=== PATIENT | male | born 1935 | race Caucasian/White ===

== ENCOUNTER 2020-05-04 07:34 | Outpatient (CLI) | payer MEDICARE ==
--- NOTE | 2020-05-04 10:35 | Ultrasound Report ---
PROCEDURE: Carotid Doppler Complete INDICATIONS: CHRONIC AFIB, EXPRESSIVE LANGUAGE DISORDER TECHNIQUE: Color and pulse Doppler interrogation was performed of both carotid systems, with image documentation and velocity measurements. COMPARISON: None. FINDINGS: Right side: Brachial blood pressure: mm Hg. Common carotid artery peak systolic velocity: 89 cm/sec. Internal carotid artery peak systolic velocity at the bulb: 137 cm/sec. Internal carotid artery end diastolic velocity at the bulb: 23 cm/sec. External carotid artery peak systolic velocity: 131 cm/sec. ICA/CCA peak systolic ratio: 0.98 . Zayas scale imaging description: Severe calcified plaque in the right bulb. Percent internal carotid artery stenosis: 50-69% stenosis in the right carotid bulb. Vertebral artery: Flow direction is antegrade. Left side: Brachial blood pressure: mm Hg. Common carotid artery peak systolic velocity: 81 cm/sec. Internal carotid artery peak systolic velocity: 73 cm/sec. Internal carotid artery end diastolic velocity: 17 cm/sec. External carotid artery peak systolic velocity: 128 cm/sec. ICA/CCA peak systolic ratio: 0.90 . Zayas scale imaging description: Mild to moderate calcified plaque in the left bulb. Percent internal carotid artery stenosis: No significant stenosis by velocity/ratio criteria. . Vertebral artery: Flow direction is antegrade. IMPRESSION: 1. 50-69% stenosis in the right carotid bulb. 2. No significant stenosis by velocity/ratio criteria on the left. The estimate of stenosis included in the report of the imaging study was calculated using the NASCET method Reviewed by: John Rodriguez on 05/04/2020 10:33 AM [facility] Approved by: John Rodriguez on 05/04/2020 10:33 AM [facility] Station ID: [id number]
== END 2020-05-04 07:35 | disposition home or self-care (01) ==
LOC: DI 07:34
PROVIDERS: ATTEND Physician Assistant
DX: I48.20 Chronic atrial fibrillation, unspecified (principal); F80.1 Expressive language disorder
CPT/HCPCS: 93880

== ENCOUNTER 2020-05-05 07:44 | Outpatient (CLI) | payer MEDICARE ==
[2020-05-05 07:57] LABS: BASOPHILS # (AUTO) 0.1 10^3/uL (0.0-0.1); BASOPHILS % (AUTO) 0.7 %; EOSINOPHILS # (AUTO) 0.4 10^3/uL (0.0-0.7); EOSINOPHILS % (AUTO) 4.2 %; HGB - HEMOGLOBIN 14.6 g/dL (14.0-18.0); LYMPHOCYTES # (AUTO) 1.8 10^3/uL (1.5-3.5); LYMPHOCYTES % (AUTO) 19.7 %; MEAN CORPUSCULAR HEMOGLOBIN 33.9 pg (27.0-31.0); MEAN CORPUSCULAR HGB CONC 33.3 g/dL (32.0-36.0); MEAN CORPUSCULAR VOLUME 101.6 fL (80.0-94.0); MONOCYTES % (AUTO) 11.1 %; NEUTROPHILS # (AUTO) 5.8 10^3/uL (1.5-6.6); NEUTROPHILS % (AUTO) 64.2 %; PLT - PLATELET COUNT 175 10^3/uL (130-450); RED BLOOD COUNT 4.31 10^6/uL (4.70-6.10); RED CELL DISTRIBUTION WIDTH 12.9 % (12.0-15.0)
[2020-05-05 08:04] LABS: INR 2.7 (0.8-1.2)
[2020-05-05 08:36] LABS: ALBUMIN/GLOBULIN RATIO 1.2 (1.0-2.2); ALKALINE PHOSPHATASE 88 IU/L (42-121); ALT ALANINE AMINOTRANSFERASE 24 IU/L (10-60); AST ASPARTATE AMINOTRANSFERASE 31 IU/L (10-42); BILIRUBIN,TOTAL 1.9 mg/dL (0.2-1.0); BUN - BLOOD UREA NITROGEN 25 mg/dL (6-20); CALCIUM 9.2 mg/dL (8.5-10.3); CARBON DIOXIDE - CO2 25 mmol/L (21-32); CHLORIDE 103 mmol/L (101-111); CHOLESTEROL 160 mg/dL; GLUCOSE 95 mg/dL (70-100); HDL CHOLESTEROL 54 mg/dL; LDL CHOLESTEROL,CALCULATED 95 mg/dL; LDL/HDL RATIO 1.8 (<3.6); SODIUM 139 mmol/L (135-145); TOTAL PROTEIN 7.3 g/dL (6.7-8.2); VLDL CHOLESTEROL 11 mg/dL
[2020-05-05 08:49] LABS: THYROID STIMULATING HORMONE 1.21 uIU/mL (0.34-5.60)
[2020-05-05 09:40] LABS: FOLATE > 49.60 ng/mL (5.90 - >24.8)
== END 2020-05-05 07:45 | disposition home or self-care (01) ==
LOC: LAB 07:44
PROVIDERS: ATTEND Physician Assistant
DX: I10 Essential (primary) hypertension (principal); I48.91 Unspecified atrial fibrillation; R26.89 Other abnormalities of gait and mobility; F80.1 Expressive language disorder; Z79.01 Long term (current) use of anticoagulants
CPT/HCPCS: 36415; 80053; 80061; 82607; 82746; 83721; 84443; 85025; 85610

== ENCOUNTER 2020-07-03 08:00 | Outpatient (CLI) | payer MEDICARE ==
[2020-07-03 16:02] LABS: INR 2.7 (0.8-1.2); PT - PROTHROMBIN TIME 28.1 secs (9.9-12.6)
== END 2020-07-03 23:59 | disposition home or self-care (01) ==
LOC: LAB 08:00
PROVIDERS: ATTEND Family Medicine
DX: Z79.01 Long term (current) use of anticoagulants (principal)
CPT/HCPCS: 36415; 85610

== ENCOUNTER 2020-07-18 07:52 | Outpatient (CLI) | payer MEDICARE | END 2020-07-18 07:53 | disposition home or self-care (01) | LOC: LAB 07:52 | PROVIDERS: ATTEND Family Medicine | DX: Z79.01 Long term (current) use of anticoagulants (principal) | CPT/HCPCS: 85610 ==

== ENCOUNTER 2020-08-16 14:47 | Outpatient (CLI) | payer MEDICARE | END 2020-08-16 14:48 | disposition home or self-care (01) | LOC: LAB 14:47 | PROVIDERS: ATTEND Family Medicine | DX: Z79.01 Long term (current) use of anticoagulants (principal) | CPT/HCPCS: 85610 ==

== ENCOUNTER 2020-08-24 10:34 | Outpatient (CLI) | payer MEDICARE | END 2020-08-24 10:35 | disposition home or self-care (01) | LOC: LAB 10:34 | PROVIDERS: ATTEND Family Medicine | DX: Z79.01 Long term (current) use of anticoagulants (principal) | CPT/HCPCS: 85610 ==

== ENCOUNTER 2020-09-05 14:51 | Outpatient (CLI) | payer MEDICARE | END 2020-09-05 14:52 | disposition home or self-care (01) | LOC: LAB 14:51 | PROVIDERS: ATTEND Family Medicine | DX: Z79.01 Long term (current) use of anticoagulants (principal) | CPT/HCPCS: 85610 ==

== ENCOUNTER 2020-09-20 17:36 | Outpatient (CLI) | payer MEDICARE | END 2020-09-20 17:37 | disposition home or self-care (01) | LOC: LAB 17:36 | PROVIDERS: ATTEND Family Medicine | DX: Z79.01 Long term (current) use of anticoagulants (principal) | CPT/HCPCS: 36416; 85610 ==

== ENCOUNTER 2020-09-28 08:14 | Outpatient (CLI) | payer MEDICARE | END 2020-09-28 08:15 | disposition home or self-care (01) | LOC: LAB 08:14 | PROVIDERS: ATTEND Family Medicine | DX: Z79.01 Long term (current) use of anticoagulants (principal) | CPT/HCPCS: 36416; 85610 ==

== ENCOUNTER 2020-10-12 08:04 | Outpatient (CLI) | payer MEDICARE | END 2020-10-12 08:05 | disposition home or self-care (01) | LOC: LAB 08:04 | PROVIDERS: ATTEND Family Medicine | DX: Z79.01 Long term (current) use of anticoagulants (principal) | CPT/HCPCS: 36416; 85610 ==

== ENCOUNTER 2020-11-13 10:22 | Outpatient (CLI) | payer MEDICARE | END 2020-11-13 10:23 | disposition home or self-care (01) | LOC: LAB 10:22 | PROVIDERS: ATTEND Family Medicine | DX: Z79.01 Long term (current) use of anticoagulants (principal) | CPT/HCPCS: 36416; 85610 ==

== ENCOUNTER 2020-12-04 11:57 | Outpatient (CLI) | payer MEDICARE | END 2020-12-04 11:58 | disposition home or self-care (01) | LOC: LAB 11:57 | PROVIDERS: ATTEND Family Medicine | DX: Z79.01 Long term (current) use of anticoagulants (principal) | CPT/HCPCS: 36416; 85610 ==

== ENCOUNTER 2020-12-19 00:17 | Outpatient (CLI) | payer MEDICARE | END 2020-12-19 00:18 | disposition critical access hospital (66) | LOC: EMS 00:17 | DX: Z04.3 Encounter for examination and observation following other accident (principal); R53.1 Weakness | CPT/HCPCS: A0425; A0429 ==

== ENCOUNTER 2020-12-19 00:23 | Emergency (ER) | payer MEDICARE ==
--- NOTE | 2020-12-19 00:37 | ED Physician Documentation ---
PD HPI Fall - Stated complaint Stated Complaint: GLF - Chief complaint Chief Complaint: Trauma Hd/Nk - History of Present Illness Mechanism of injury: Lost balance Fall distance: Standing position Where injury occurred: Home (he says he was walking to bathroom with his walker and lost balance. Fell back onto buttocks. Pain in buttocks. Not aware of hitting head. No headache. Was unable to get up himself. Did call his daughter, who lives next door, who called EMS. On Coumadin. Brought to ER for evaluation. Otherwise okay.) Timing - onset: How many hours ago (few), Today Injury(ies) location: Back (buttocks/gluteal area.). No: Head, Neck, Chest, Abdomen Associated symptoms: No: LOC, AMS, Weakness, Paresthesias Contributing factors: Anticoagulated. No: Intoxicated Similar symptoms before: Has not had sx before Review of Systems Constitutional: denies: Fever, Chills Nose: denies: Rhinorrhea / runny nose, Congestion Throat: denies: Sore throat Cardiac: denies: Chest pain / pressure Respiratory: denies: Dyspnea, Cough GI: denies: Nausea, Vomiting, Diarrhea, Bloody / black stool Neurologic: denies: Focal weakness, Numbness, Near syncope, Headache, LOC PD PAST MEDICAL HISTORY - Past Medical History Cardiovascular: Atrial fibrillation Respiratory: None Neuro: None, Dementia Endocrine/Autoimmune: None - Present Medications Home Medications: Ambulatory Orders Medication Instructions Recorded Confirmed Metoprolol Tartrate [Lopressor] 50 mg PO DAILY 12/19/20 12/19/20 Tamsulosin [Flomax] 0.4 mg PO DAILY 12/19/20 12/19/20 Warfarin [Coumadin] 5 mg PO DAILY 12/19/20 12/19/20 - Allergies Allergies/Adverse Reactions: Allergies Allergy/AdvReac Type Severity Reaction Status Date / Time morphine Allergy Unknown Verified 12/19/20 00:52 - Living Situation Living Situation: reports: Alone. denies: With family (but daughter lives in house next door and checks on him often. ) Living Arrangement: reports: At home PD ED PE NORMAL - Vitals Vital signs reviewed: Yes - General General: Alert and oriented X 3, No acute distress, Well developed/nourished - HEENT HEENT: Atraumatic, Moist mucous membranes, Pharynx benign - Neck Neck: Supple, no meningeal sign, No bony TTP, No adenopathy - Cardiac Cardiac: No: RRR (seems fairly regular and no murmur. ) - Respiratory Respiratory: Clear bilaterally, Other (no chestwall tenderness. ) - Abdomen Abdomen: Soft, Non tender - Back Back: No CVA TTP, No spinal TTP (not tender in midline, but does have some tenderness in ischial rami area bilaterally without deformity. Hip joints themselves not tender. ) - Derm Derm: Normal color, Warm and dry - Extremities Extremities: No tenderness to palpate, Normal ROM s pain - Neuro Neuro: Alert and oriented X 3, No motor deficit, Normal speech, Other (ambulatory with his walker. Slow going but independent. ) - Psych Psych: Normal mood, Normal affect Results - Vitals Vitals: Vital Signs - 24 hr 12/19/20 12/19/20 12/19/20 00:25 00:32 01:02 Temperature 97.3 C H 36.3 C L Heart Rate 97 93 89 Respiratory 24 16 14 Rate Blood Pressure 125/75 125/75 131/81 H O2 Saturation 95 96 99 12/19/20 12/19/20 12/19/20 01:24 01:49 02:30 Temperature Heart Rate 97 92 92 Respiratory 18 17 17 Rate Blood Pressure 138/81 H 113/87 H 113/72 O2 Saturation 95 98 95 12/19/20 12/19/20 03:00 03:45 Temperature 37.1 C 37.1 C Heart Rate 88 88 Respiratory 21 21 Rate Blood Pressure 112/72 112/72 O2 Saturation 98 98 Oxygen O2 Source Room air - Labs Labs: Laboratory Tests 12/19/20 12/19/20 12/19/20 00:30 00:30 00:30 WBC 8.8 RBC 4.05 L Hgb 13.6 L Hct 40.7 L MCV 100.5 H MCH 33.6 H MCHC 33.4 RDW 13.6 Plt Count 183 MPV 9.2 Neut # (Auto) 6.5 Lymph # (Auto) 1.2 L [place] # (Auto) 0.8 Eos # (Auto) 0.2 Baso # (Auto) 0.1 Absolute Nucleated RBC 0.00 Nucleated RBC % 0.0 PT 34.8 H INR 3.4 H Sodium 140 Potassium 4.1 Chloride 104 Carbon Dioxide 25 Anion Gap 11.0 BUN 36 H Creatinine 1.8 H Estimated GFR (MDRD) 36 L Glucose 103 H Calcium 9.4 Total Bilirubin 1.4 H AST 34 ALT 23 Alkaline Phosphatase 97 Total Protein 7.0 Albumin 3.9 Globulin 3.1 Albumin/Globulin Ratio 1.3 Lipase 35 - Rads (name of study) head CT Radiology: Prelim report reviewed (no ICH nor acute injury), See rad report pelvic CT Radiology: Prelim report reviewed (no acute fracture. possible old coccygeal fracture noted. ), See rad report PD MEDICAL DECISION MAKING - ED course Complexity details: reviewed results, considered differential, d/w patient, d/w family (daughter came to ER while he was at imaging and was with him, states LOC and alertness/memory at baseline. ) Departure - Departure Disposition: 01 Home, Self Care Clinical Impression: Anticoagulant long-term use Fall from slip, trip, or stumble Qualifiers: Encounter type: initial encounter Qualified Code(s): W01.0XXA - Fall on same level from slipping, tripping and stumbling without subsequent striking against object, initial encounter Contusion, buttock Qualifiers: Encounter type: initial encounter Qualified Code(s): S30.0XXA - Contusion of lower back and pelvis, initial encounter Condition: Stable Record reviewed to determine appropriate education?: Yes Comments: You can use Tylenol every 4 hours if needed for pains in your buttocks from the fall. No signs of fractures in the pelvis. No signs of bleeding in the head based on your CT scans. Your Coumadin level is slightly elevated at 3.4. Hold today's dose and then resume normal dosing after that. Follow-up with your primary care as needed. Discharge Date/Time: 12/19/20 03:48
[2020-12-19 00:38] LABS: BASOPHILS # (AUTO) 0.1 10^3/uL (0.0-0.1); BASOPHILS % (AUTO) 0.6 %; EOSINOPHILS # (AUTO) 0.2 10^3/uL (0.0-0.7); EOSINOPHILS % (AUTO) 2.2 %; HCT - HEMATOCRIT 40.7 % (42.0-52.0); HGB - HEMOGLOBIN 13.6 g/dL (14.0-18.0); LYMPHOCYTES # (AUTO) 1.2 10^3/uL (1.5-3.5); LYMPHOCYTES % (AUTO) 13.7 %; MEAN CORPUSCULAR HEMOGLOBIN 33.6 pg (27.0-31.0); MEAN CORPUSCULAR HGB CONC 33.4 g/dL (32.0-36.0); MEAN CORPUSCULAR VOLUME 100.5 fL (80.0-94.0); MEAN PLATELET VOLUME 9.2 fL (7.4-11.4); MONOCYTES # (AUTO) 0.8 10^3/uL (0.0-1.0); MONOCYTES % (AUTO) 8.7 %; NEUTROPHILS # (AUTO) 6.5 10^3/uL (1.5-6.6); NEUTROPHILS % (AUTO) 74.5 %; PLT - PLATELET COUNT 183 10^3/uL (130-450); RED BLOOD COUNT 4.05 10^6/uL (4.70-6.10); RED CELL DISTRIBUTION WIDTH 13.6 % (12.0-15.0); WHITE BLOOD COUNT 8.8 x10^3/uL (4.8-10.8)
[2020-12-19 00:40] LABS: INR 3.4 (0.8-1.2); PT - PROTHROMBIN TIME 34.8 secs (9.9-12.6)
[2020-12-19 00:52] LABS: ALBUMIN 3.9 g/dL (3.2-5.5); ALBUMIN/GLOBULIN RATIO 1.3 (1.0-2.2); BILIRUBIN,TOTAL 1.4 mg/dL (0.2-1.0); CREATININE 1.8 mg/dL (0.6-1.2)
[2020-12-19 01:00] LABS: CALCIUM 9.4 mg/dL (8.5-10.3); POTASSIUM 4.1 mmol/L (3.5-5.0)
[2020-12-19] MEDS ORDERED: ACETAMINOPHEN 325 MG TABLET PO STA (01:26)
[2020-12-19 03:05] VITALS: BP 112/72
--- NOTE | 2020-12-19 07:19 | CT Report ---
PROCEDURE: HEAD WO INDICATIONS: fall, on coumadin TECHNIQUE: Noncontrast 4.5 mm thick angled axial sections acquired from the foramen magnum to the vertex. For r adiation dose reduction, the following was used: automated exposure control, adjustment of mA and/or kV according to patient size. COMPARISON: None FINDINGS: Image quality: Excellent. CSF spaces: Basal cisterns are patent. No extra-axial fluid collections. The ventricles are symmet marci in size and shape. Brain: No intracranial bleeds or masses. There is cerebral volume loss for age, with resultant vent ricular and sulcal prominence. There are periventricular and deep white matter chronic small vessel ischemic changes. There is intracranial internal carotid artery atherosclerosis. Skull and face: Calvarium and visualized facial bones appear intact, without suspicious lesions. Sinuses: Visualized sinuses and mastoids are clear. IMPRESSION: No acute intracranial disease process. Reviewed by: Felisa Henderson MD, PhD on 12/19/2020 7:18 AM PDT Approved by: Felisa Henderson MD, PhD on 12/19/2020 7:18 AM PDT Station ID: [id number]
--- NOTE | 2020-12-19 08:55 | CT Report ---
PROCEDURE: PELVIS WO INDICATIONS: fall onto buttocks/ pain sacral/ramus areas TECHNIQUE: Noncontrast 3 mm axial sections acquired through the bony pelvis, with coronal and sagittal reformatt ing. For radiation dose reduction, the following was used: automated exposure control, adjustment of mA and/or kV according to patient size. COMPARISON: None. FINDINGS: Image quality: Excellent. Bones: Pelvic ring is intact. No acute pelvic fracture or dislocation is seen. Bilateral sacroiliac joints, hip joint and symphysis pubis osteoarthritic changes are seen. No evidence of avascular necro sis of femoral head. No bony erosion or ankylosis is seen in bilateral sacroiliac joints. Acute angul ation involving mid coccyx is seen likely represent old fracture. No definite acute coccygeal fractur e. Degenerative disc disease in visualized lower lumbar spine is seen. Soft tissues: There is no pelvic free fluid of free air. Dense atherosclerotic calcifications are no michelet in abdominal aorta and bilateral iliac vessels. Bladder wall thickness is normal. Sigmoid diverti culosis is seen, no wall thickening or pericolonic fat stranding is seen. Enlarged prostate gland wit h mild mass effect on floor of urinary bladder is noted. No pelvic lymphadenopathy. No gross muscle o r soft tissue abnormality is seen in pelvis and bilateral hip. IMPRESSION: 1. No acute pelvic fracture or dislocation. Likely old mid coccygeal fracture as above. 2. Osteoarthritis throughout the bony pelvis no evidence of avascular necrosis of femoral head. Degen erative disc disease in visualized lower lumbar spine. 3. No gross pelvic soft tissue abnormality. Incidental findings are described as above. No discrepancies from preliminary reading. Reviewed by: Arias Stark MD on 12/19/2020 8:53 AM PDT Approved by: Arias Stark MD on 12/19/2020 8:53 AM PDT Station ID: [id number]
== END 2020-12-19 03:48 | disposition home or self-care (01) ==
LOC: EDUNIT# → EDBD → ED 00:23 → SUPCPDRO 00:23 → ED 03:48
DX: S30.0XXA Contusion of lower back and pelvis, initial encounter (principal); W01.0XXA Fall on same level from slipping, tripping and stumbling without subsequent striking against object, initial encounter; Y93.01 Activity, walking, marching and hiking; Y92.009 Unspecified place in unspecified non-institutional (private) residence as the place of occurrence of the external cause; I48.91 Unspecified atrial fibrillation; Z79.01 Long term (current) use of anticoagulants; M51.36 Other intervertebral disc degeneration, lumbar region
CPT/HCPCS: 36415; 70450; 72192; 80053; 83690; 85025; 85610; 99284; A9270

== ENCOUNTER 2020-12-26 15:40 | Outpatient (CLI) | payer MEDICARE | END 2020-12-26 15:41 | disposition home or self-care (01) | LOC: LAB 15:40 | PROVIDERS: ATTEND Family Medicine | DX: Z79.01 Long term (current) use of anticoagulants (principal) | CPT/HCPCS: 85610 ==

== ENCOUNTER 2021-01-16 19:13 | Outpatient (CLI) | payer MEDICARE | END 2021-01-16 19:14 | disposition EMS.NT | LOC: EMS 19:13 | DX: R42 Dizziness and giddiness (principal) ==

== ENCOUNTER 2021-01-30 10:13 | Outpatient (CLI) | payer MEDICARE | END 2021-01-30 10:14 | disposition home or self-care (01) | LOC: LAB 10:13 | PROVIDERS: ATTEND Family Medicine | DX: Z79.01 Long term (current) use of anticoagulants (principal) | CPT/HCPCS: 36416; 85610 ==

== ENCOUNTER 2021-02-06 10:16 | Outpatient (CLI) | payer MEDICARE | END 2021-02-06 10:17 | disposition critical access hospital (66) | LOC: EMS 10:16 | DX: R41.82 Altered mental status, unspecified (principal) | CPT/HCPCS: A0425; A0429 ==

== ENCOUNTER 2021-02-06 10:22 | Emergency (ER) | payer MEDICARE ==
--- NOTE | 2021-02-06 10:29 | ED Physician Documentation ---
PD HPI Fall - Stated complaint Stated Complaint: GLF - History obtained from History obtained from: EMS - History of Present Illness Mechanism of injury: Unknown Fall distance: Unknown Where injury occurred: Home, A house / apartment Timing - onset: Unknown Injury(ies) location: Other (None noted) Pain level max: 0 Pain level now: 0 - Additional information Additional information: History provided per EMS because of patient's dementia. He lives alone and is cared for by his daughter who believes he has some progressive dementia type symptoms. She came in last night got him his meal and left him for the evening. She found him this morning on the floor incontinent of urine but awake and more confused than normal. His dishes were in the sink and the believe he fell in the kitchen based on the fact that the table was moved slightly. Patient is unable to provide any history because he cannot even tell me where he is or who he is or what date it is. Daughter feels like this confusion is worse than his normal baseline. EMS reports a blood sugar of 95.EMS was unable to identify any specific injuries. Review of Systems Unable to obtain: Confused (Patient not oriented) Skin: reports: Other (Reports bruises just from bumping in to things) Musculoskeletal: reports: Neck pain (On occasion, none now.), Other (Denies any pain) PD PAST MEDICAL HISTORY - Present Medications Home Medications: Ambulatory Orders Medication Instructions Recorded Confirmed Metoprolol Tartrate [Lopressor] 50 mg PO DAILY 12/19/20 12/19/20 Tamsulosin [Flomax] 0.4 mg PO DAILY 12/19/20 12/19/20 Warfarin [Coumadin] 5 mg PO DAILY 12/19/20 12/19/20 - Allergies Allergies/Adverse Reactions: Allergies Allergy/AdvReac Type Severity Reaction Status Date / Time morphine Allergy Unknown Verified 12/19/20 00:52 PD ED PE NORMAL - Vitals Vital signs reviewed: Yes - General General: No acute distress, Other (Thin). No: Alert and oriented X 3 - HEENT HEENT: Atraumatic, PERRL, EOMI - Neck Neck: Other (Neck is stiff but denies pain) - Cardiac Cardiac: RRR, No murmur, Strong equal pulses - Respiratory Respiratory: No respiratory distress, Clear bilaterally - Abdomen Abdomen: Normal bowel sounds, Soft, Non tender, Non distended - Extremities Extremities: Other (Bruising to left elbow. 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, No motor deficit, No sensory deficit, Normal speech - Psych Psych: Normal mood Results - Vitals Vitals: Vital Signs - 24 hr 02/06/21 02/06/21 02/06/21 10:40 11:18 13:00 Temperature 36.6 C Heart Rate 105 H 102 H 98 Respiratory 18 20 20 Rate Blood Pressure 122/72 116/72 140/68 H O2 Saturation 99 98 100 02/06/21 02/06/21 02/06/21 14:16 15:00 16:05 Temperature Heart Rate 95 88 106 H Respiratory 16 17 24 Rate Blood Pressure 143/79 H 126/71 132/81 H O2 Saturation 100 100 98 02/06/21 02/06/21 16:40 17:00 Temperature Heart Rate 98 94 Respiratory 11 L 23 Rate Blood Pressure 150/91 H 148/88 H O2 Saturation 99 99 Oxygen O2 Source Room air - EKG (time done) 1030 Rate: Tachy Rhythm: Atrial fibrillation Ischemia: Non specific changes - Labs Labs: Laboratory Tests 02/06/21 02/06/21 02/06/21 10:39 10:39 10:39 WBC 9.6 RBC 3.92 L Hgb 13.1 L Hct 40.0 L MCV 102.0 H MCH 33.4 H MCHC 32.8 RDW 13.6 Plt Count 167 MPV 9.1 Neut # (Auto) 7.6 H Lymph # (Auto) 0.9 L [place] # (Auto) 0.9 Eos # (Auto) 0.0 Baso # (Auto) 0.0 Absolute Nucleated RBC 0.00 Nucleated RBC % 0.0 PT 49.1 H INR 4.4 H Sodium 141 Potassium 3.8 Chloride 108 Carbon Dioxide 21 Anion Gap 12.0 BUN 42 H Creatinine 1.1 Estimated GFR (MDRD) 63 L Glucose 117 H Calcium 9.4 CK-MB (CK-2) Urine Color Urine Clarity Urine pH Ur Specific [place] Urine Protein Urine Glucose (UA) Urine Ketones Urine Occult Blood Urine Nitrite Urine Bilirubin Urine Urobilinogen Ur Leukocyte Esterase Urine RBC Urine WBC Ur Squamous Epith Cells Urine Bacteria Ur Microscopic Review Urine Culture Comments 02/06/21 02/06/21 10:39 13:14 WBC RBC Hgb Hct MCV MCH MCHC RDW Plt Count MPV Neut # (Auto) Lymph # (Auto) [place] # (Auto) Eos # (Auto) Baso # (Auto) Absolute Nucleated RBC Nucleated RBC % PT INR Sodium Potassium Chloride Carbon Dioxide Anion Gap BUN Creatinine Estimated GFR (MDRD) Glucose Calcium CK-MB (CK-2) 19.7 H Urine Color YELLOW Urine Clarity CLEAR Urine pH 5.5 Ur Specific [place] 1.025 Urine Protein TRACE Urine Glucose (UA) NEGATIVE Urine Ketones TRACE Urine Occult Blood MODERATE H Urine Nitrite NEGATIVE Urine Bilirubin NEGATIVE Urine Urobilinogen 0.2 (NORMAL) Ur Leukocyte Esterase NEGATIVE Urine RBC 0-5 Urine WBC 0-3 Ur Squamous Epith Cells FEW Squamous Urine Bacteria Few Ur Microscopic Review INDICATED Urine Culture Comments NOT INDICATED PD MEDICAL DECISION MAKING - ED course ED course: CT head neg; Hgb is normal; no UTI. Daughter wants to take the patient home and care for him there rather than consider placement at this time. Daughter assures me that someone can stay with him around the clock until they get him settled at her house. He only lives one mobile home away from her currently. Departure - Departure Disposition: 01 Home, Self Care Clinical Impression: Fall, Contusion of elbow, left Condition: Good Instructions: Falls Risks Prevent, ED Contusion Elbow Ch Follow-Up: [facility] [Provider Group] Comments: Patient should not be left alone due to his risk of falls. Follow-up with his primary care provider as needed.
[2021-02-06 10:46] LABS: BASOPHILS % (AUTO) 0.4 %; EOSINOPHILS % (AUTO) 0.2 %; HGB - HEMOGLOBIN 13.1 g/dL (14.0-18.0); LYMPHOCYTES # (AUTO) 0.9 10^3/uL (1.5-3.5); LYMPHOCYTES % (AUTO) 9.7 %; MEAN CORPUSCULAR HEMOGLOBIN 33.4 pg (27.0-31.0); MEAN CORPUSCULAR HGB CONC 32.8 g/dL (32.0-36.0); MEAN PLATELET VOLUME 9.1 fL (7.4-11.4); MONOCYTES # (AUTO) 0.9 10^3/uL (0.0-1.0); MONOCYTES % (AUTO) 9.4 %; NEUTROPHILS # (AUTO) 7.6 10^3/uL (1.5-6.6); NEUTROPHILS % (AUTO) 79.9 %; PLT - PLATELET COUNT 167 10^3/uL (130-450); RED BLOOD COUNT 3.92 10^6/uL (4.70-6.10); RED CELL DISTRIBUTION WIDTH 13.6 % (12.0-15.0); WHITE BLOOD COUNT 9.6 x10^3/uL (4.8-10.8)
[2021-02-06 10:56] LABS: CALCIUM 9.4 mg/dL (8.5-10.3); CREATININE 1.1 mg/dL (0.6-1.2); POTASSIUM 3.8 mmol/L (3.5-5.0)
[2021-02-06 11:03] LABS: INR 4.4 (0.8-1.2); PT - PROTHROMBIN TIME 49.1 secs (9.9-12.6)
--- NOTE | 2021-02-06 11:08 | CT Report ---
PROCEDURE: HEAD WO INDICATIONS: Fall on Warfarin TECHNIQUE: Noncontrast 4.5 mm thick angled axial sections acquired from the foramen magnum to the vertex. For r adiation dose reduction, the following was used: automated exposure control, adjustment of mA and/or kV according to patient size. COMPARISON: CT 12/19/2020. FINDINGS: Image quality: Excellent. The ventricular system and cortical sulci demonstrate atrophy, consistent for patient's stated age. There are areas of hypodensity in the periventricular and subcortical white matter. There is no acut e intra or extra-axial fluid collection. No acute hemorrhage, mass lesion or midline shift. Brainst em is unremarkable. Globes are symmetrical. Sinuses are aerated. Osseous structures are intact. IMPRESSION: 1. No acute intracranial process. 2. Moderate atrophy and chronic microvascular ischemic changes. Reviewed by: Sheila Scott MD on 02/06/2021 11:07 AM PDT Approved by: Sheila Scott MD on 02/06/2021 11:07 AM PDT Station ID: [id number]
[2021-02-06] MEDS ORDERED: LACTATED RINGERS 1,000 ML IV STA (12:50)
[2021-02-06 13:59] LABS: BILIRUBIN,URINE NEGATIVE (NEGATIVE); GLUCOSE, URINE (UA) NEGATIVE (NEGATIVE); KETONES,URINE (UA) TRACE mg/dL (NEGATIVE); LEUKOCYTE ESTERASE, URINE NEGATIVE (NEGATIVE); NITRITE,URINE NEGATIVE (NEGATIVE); OCCULT BLOOD,URINE MODERATE (NEGATIVE); PH,URINE 5.5 PH (5.0-7.5); PROTEIN,URINE TRACE mg/dL (NEGATIVE); UROBILINOGEN,URINE 0.2 (NORMAL) E.U./dL (NORMAL)
[2021-02-06 14:00] LABS: CLARITY,URINE CLEAR (CLEAR)
[2021-02-06 14:26] LABS: BACTERIA,URINE Few /HPF (None Seen); RBC,URINE 0-5 /HPF (0-5); SQUAMOUS EPITHELIAL CELL,UR FEW Squamous (<= Few); WBC,URINE 0-3 /HPF (0-3)
[2021-02-06 17:05] VITALS: BP 148/88
== END 2021-02-06 18:15 | disposition home or self-care (01) ==
LOC: EDUNIT# → ED 10:22
DX: S50.02XA Contusion of left elbow, initial encounter (principal); W19.XXXA Unspecified fall, initial encounter; Y92.009 Unspecified place in unspecified non-institutional (private) residence as the place of occurrence of the external cause; I48.91 Unspecified atrial fibrillation; Z79.01 Long term (current) use of anticoagulants
CPT/HCPCS: 36415; 70450; 80048; 81001; 82553; 85025; 85610; 93005; 96360; 96361; 99283; 99284; J7120; 81003; 87086

== ENCOUNTER 2021-02-08 09:51 | Outpatient (CLI) | payer MEDICARE | END 2021-02-08 09:52 | disposition critical access hospital (66) | LOC: EMS 09:51 | DX: R41.82 Altered mental status, unspecified (principal) | CPT/HCPCS: A0425; A0429 ==

== ENCOUNTER 2021-02-08 09:58 | Emergency (ER) | payer MEDICARE ==
[2021-02-08] MEDS ORDERED: SODIUM CHLORIDE 0.9% 1,000 ML IV ONE (10:18)
--- NOTE | 2021-02-08 10:19 | ED Physician Documentation ---
PD HPI ALTERED MENTAL STATUS - Stated complaint Stated Complaint: AMS - Chief complaint Chief Complaint: Neuro - History obtained from History obtained from: Patient, Other (Nursing per EMS) - History of Present Illness Timing - onset: Today Timing - details: Abrupt onset Quality / character: Less responsive, Agitated Contributing factors: Anticoagulated Recently seen: Emergency Dept - Additional information Additional information: This is an 85-year-old man whom I actually took care of in the emergency department 2 days ago. He had a history of dementia and had been found down at home unwitnessed fall. At that time he was very pleasant and there was no sign of closed head injury. He had a history of dementia and his daughter who is his primary caregiver felt that he was slightly off from his baseline dementia and things have been getting progressively worse but not to the point that they wanted to seek placement. They were going to move him out of his own mobile home and into living with her. Per EMS report to nursing staff patient this morning was sitting at the table and just kind of staring off in fact report was the daughter thought that he might actually have already . He cannot provide me any information other than the fact that he was very agitated about the fact that all these people showed up and started hooking him up to equipment and brought him here. He does not want to be here. Review of Systems Unable to obtain: Dementia PD PAST MEDICAL HISTORY - Past Medical History Cardiovascular: Atrial fibrillation Respiratory: None Neuro: None, Dementia Endocrine/Autoimmune: None GI: Chronic constipation : Benign prostate hypertrophy, Retention HEENT: Chronic hearing loss Psych: Depression Musculoskeletal: Osteoarthritis Derm: None - Past Surgical History Past Surgical History: Yes General: Cholecystectomy Ortho: Knee replacement - Present Medications Home Medications: Ambulatory Orders Medication Instructions Recorded Confirmed Metoprolol Tartrate [Lopressor] 50 mg PO DAILY 12/19/20 12/19/20 Tamsulosin [Flomax] 0.4 mg PO DAILY 12/19/20 12/19/20 Warfarin [Coumadin] 5 mg PO DAILY 12/19/20 12/19/20 - Allergies Allergies/Adverse Reactions: Allergies Allergy/AdvReac Type Severity Reaction Status Date / Time morphine Allergy Unknown Verified 12/19/20 00:52 - Social History Does the pt smoke?: No Smoking Status: Former smoker Does the pt drink ETOH?: No Does the pt have substance abuse?: No - Immunizations Immunizations are current?: Yes - POLST Patient has POLST: Yes PD ED PE NORMAL - Vitals Vital signs reviewed: Yes - General General: Well developed/nourished, Other (Patient is agitated and slightly confrontational about being asked any questions. He does not know his name, where he is, date or any circumstances of what is going on.) - HEENT HEENT: Atraumatic, PERRL, EOMI - Neck Neck: No JVD - Cardiac Cardiac: RRR, No murmur - Respiratory Respiratory: No respiratory distress, Clear bilaterally - Abdomen Abdomen: Normal bowel sounds, Soft - Derm Derm: Normal color, Other (scattered bruising) - Extremities Extremities: No edema - Neuro Neuro: Other (Moving all extrem equally; speech is not slurred) - Psych Psych: Other (Irritated) Results - Vitals Vitals: Vital Signs - 24 hr 02/08/21 02/08/21 09:58 11:57 Temperature 36.4 C L Heart Rate 110 H 90 Respiratory 16 16 Rate Blood Pressure 134/80 H 147/106 H O2 Saturation 95 Oxygen O2 Source Room air - EKG (time done) 1045 Rate: Rate (enter#) (102) Rhythm: Atrial fibrillation Ischemia: Non specific changes Other comments: Other comments (Artifact present; Some p-waves noted) - Labs Labs: Laboratory Tests 02/08/21 02/08/21 02/08/21 10:19 10:19 10:19 WBC 7.2 RBC 3.96 L Hgb 13.4 L Hct 40.0 L MCV 101.0 H MCH 33.8 H MCHC 33.5 RDW 13.3 Plt Count 156 MPV 9.1 Neut # (Auto) 4.6 Lymph # (Auto) 1.7 [place] # (Auto) 0.7 Eos # (Auto) 0.2 Baso # (Auto) 0.1 Absolute Nucleated RBC 0.00 Nucleated RBC % 0.0 PT 23.2 H INR 2.1 H Sodium 140 Potassium 4.0 Chloride 106 Carbon Dioxide 25 Anion Gap 9.0 BUN 36 H Creatinine 1.4 H Estimated GFR (MDRD) 48 L Glucose 97 Calcium 9.0 Total Bilirubin 2.2 H AST 38 ALT 24 Alkaline Phosphatase 62 Total Creatine Kinase Total Protein 6.7 Albumin 3.7 Globulin 3.0 Albumin/Globulin Ratio 1.2 Lipase 40 Urine Color Urine Clarity Urine pH Ur Specific [place] Urine Protein Urine Glucose (UA) Urine Ketones Urine Occult Blood Urine Nitrite Urine Bilirubin Urine Urobilinogen Ur Leukocyte Esterase Ur Microscopic Review Urine Culture Comments Ethyl Alcohol 02/08/21 02/08/21 10:19 12:05 WBC RBC Hgb Hct MCV MCH MCHC RDW Plt Count MPV Neut # (Auto) Lymph # (Auto) [place] # (Auto) Eos # (Auto) Baso # (Auto) Absolute Nucleated RBC Nucleated RBC % PT INR Sodium Potassium Chloride Carbon Dioxide Anion Gap BUN Creatinine Estimated GFR (MDRD) Glucose Calcium Total Bilirubin AST ALT Alkaline Phosphatase Total Creatine Kinase 301 H Total Protein Albumin Globulin Albumin/Globulin Ratio Lipase Urine Color YELLOW Urine Clarity CLEAR Urine pH 6.0 Ur Specific [place] 1.015 Urine Protein NEGATIVE Urine Glucose (UA) NEGATIVE Urine Ketones NEGATIVE Urine Occult Blood TRACE-LYSE Urine Nitrite NEGATIVE Urine Bilirubin NEGATIVE Urine Urobilinogen 0.2 (NORMAL) Ur Leukocyte Esterase NEGATIVE Ur Microscopic Review NOT INDICATED Urine Culture Comments NOT INDICATED Ethyl Alcohol < 5.0 PD MEDICAL DECISION MAKING - ED course ED course: Patient's daughter did arrive in the emergency department. I did reCT him because of the high INR 2 days ago but there is no evidence of intracranial hemorrhage or acute stroke. His INR is down to 2.1 now. BUN and creatinine are elevated 36 and 1.4. Urine does not show any sign of infection. Alcohol was less than 5. On reevaluation at the bedside he was much more pleasant susan ative. The daughter describes what sounds like 2 [id number] syncopal episodes while he was sitting in the chair. 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 fib already on the Coumadin. No history of ventricular tachycardias that they are aware of. The daughter remembers they attempted to get MRI but had some difficulty because of artifact from movement. She recalls him having an echo and carotid ultrasounds. The carotids showed some stenosis but does not remember any specific follow-up being suggested. We discussed checking his pulse if he was in that situation and also checking his eyes for any rapid eye movements to suggest seizure activity that is not tonic-clonic in nature. And I have encouraged expeditious follow-up as an outpatient with the primary care provider for further neurological evaluation. Daughter states understanding and still is wanting to take him home and care for him at home. Departure - Departure Disposition: Home, Self Care Clinical Impression: Altered mental status Condition: Stable Instructions: ED Altered Loc Follow-Up: doctor, your [Other] Comments: Continue the Coumadin. If he has another episode be sure to check his pulse. If he is unarousable call 911. I would recommend quick follow-up with the primary care provider for consideration of Neurology consult.
[2021-02-08 10:29] LABS: BASOPHILS # (AUTO) 0.1 10^3/uL (0.0-0.1); BASOPHILS % (AUTO) 0.8 %; EOSINOPHILS # (AUTO) 0.2 10^3/uL (0.0-0.7); EOSINOPHILS % (AUTO) 2.8 %; HGB - HEMOGLOBIN 13.4 g/dL (14.0-18.0); LYMPHOCYTES # (AUTO) 1.7 10^3/uL (1.5-3.5); LYMPHOCYTES % (AUTO) 23.6 %; MEAN CORPUSCULAR HEMOGLOBIN 33.8 pg (27.0-31.0); MEAN CORPUSCULAR HGB CONC 33.5 g/dL (32.0-36.0); MEAN PLATELET VOLUME 9.1 fL (7.4-11.4); MONOCYTES # (AUTO) 0.7 10^3/uL (0.0-1.0); MONOCYTES % (AUTO) 9.7 %; NEUTROPHILS # (AUTO) 4.6 10^3/uL (1.5-6.6); NEUTROPHILS % (AUTO) 62.8 %; PLT - PLATELET COUNT 156 10^3/uL (130-450); RED BLOOD COUNT 3.96 10^6/uL (4.70-6.10); RED CELL DISTRIBUTION WIDTH 13.3 % (12.0-15.0); WHITE BLOOD COUNT 7.2 x10^3/uL (4.8-10.8)
[2021-02-08 10:36] LABS: INR 2.1 (0.8-1.2); PT - PROTHROMBIN TIME 23.2 secs (9.9-12.6)
[2021-02-08 10:43] LABS: ALBUMIN 3.7 g/dL (3.2-5.5); ALBUMIN/GLOBULIN RATIO 1.2 (1.0-2.2); BILIRUBIN,TOTAL 2.2 mg/dL (0.2-1.0); CREATININE 1.4 mg/dL (0.6-1.2); TOTAL PROTEIN 6.7 g/dL (6.7-8.2)
[2021-02-08 10:54] LABS: CK- CREATINE KINASE 301 IU/L (22-269); ETOH - ETHANOL < 5.0 mg/dL
--- NOTE | 2021-02-08 11:14 | CT Report ---
PROCEDURE: HEAD WO INDICATIONS: AMS TECHNIQUE: Noncontrast 4.5 mm thick angled axial sections acquired from the foramen magnum to the vertex. For r adiation dose reduction, the following was used: automated exposure control, adjustment of mA and/or kV according to patient size. COMPARISON: CT head 02/06/2021. FINDINGS: Image quality: Excellent. CSF spaces: Basal cisterns are patent. No extra-axial fluid collections. Ventricles are symmetric in size and shape. Brain: No midline shift. No acute intracranial or hemorrhage or mass effect. There is chronic age-r elated cerebral and cerebellar volume loss. Mild scattered hypodensities in the subcortical and periv entricular white matter are nonspecific, but most likely represent chronic microvascular ischemic jacek nges. Intracranial atherosclerotic calcifications are present. Skull and face: Calvarium and visualized facial bones are intact, without suspicious lesions. Sinuses: Visualized sinuses and mastoids are clear. IMPRESSION: 1. No acute intracranial abnormality. 2. Moderate cerebral atrophy and chronic microvascular ischemic changes. Reviewed by: Russell Vazquez MD on 02/08/2021 11:12 AM PDT Approved by: Russell Vazquez MD on 02/08/2021 11:12 AM PDT Station ID: [id number]
[2021-02-08 12:17] LABS: BILIRUBIN,URINE NEGATIVE (NEGATIVE); GLUCOSE, URINE (UA) NEGATIVE (NEGATIVE); KETONES,URINE (UA) NEGATIVE (NEGATIVE); LEUKOCYTE ESTERASE, URINE NEGATIVE (NEGATIVE); NITRITE,URINE NEGATIVE (NEGATIVE); OCCULT BLOOD,URINE TRACE-LYSE (NEGATIVE); PROTEIN,URINE NEGATIVE (NEGATIVE); UROBILINOGEN,URINE 0.2 (NORMAL) E.U./dL (NORMAL)
[2021-02-08 12:19] LABS: CLARITY,URINE CLEAR (CLEAR)
[2021-02-08 13:56] VITALS: BP 130/90
== END 2021-02-08 13:55 | disposition home or self-care (01) ==
LOC: EDUNIT# → ED 09:58
DX: R41.82 Altered mental status, unspecified (principal); I48.91 Unspecified atrial fibrillation; R94.4 Abnormal results of kidney function studies; Z79.01 Long term (current) use of anticoagulants; Z87.891 Personal history of nicotine dependence
CPT/HCPCS: 36415; 70450; 80053; 81003; 82550; 83690; 85025; 85610; 93005; 96360; 96361; 99284; 99285; G0480; 80320; 81001; 87086

== ENCOUNTER 2021-02-28 19:46 | Outpatient (CLI) | payer MEDICARE | END 2021-02-28 19:47 | disposition critical access hospital (66) | LOC: EMS 19:46 | DX: S01.91XA Laceration without foreign body of unspecified part of head, initial encounter (principal); W19.XXXA Unspecified fall, initial encounter; Y92.009 Unspecified place in unspecified non-institutional (private) residence as the place of occurrence of the external cause; Z79.01 Long term (current) use of anticoagulants | CPT/HCPCS: A0425; A0429 ==

== ENCOUNTER 2021-02-28 19:52 | Emergency (ER) | payer MEDICARE ==
--- NOTE | 2021-02-28 20:04 | ED Physician Documentation ---
PD HPI Fall - Stated complaint Stated Complaint: FELL, HIT HEAD - Chief complaint Chief Complaint: Laceration - History obtained from History obtained from: Patient, Family, EMS (report from family is patient tripped around fireplace and fell, struck head.) - History of Present Illness Mechanism of injury: Tripped Fall distance: Standing position Where injury occurred: Home Timing - onset: Today Injury(ies) location: Head. No: Neck, Chest, Abdomen Associated symptoms: No: LOC, AMS (at baseline level of dementia; not aware of time/place, but alert and happily conversant.) Worsens with: Palpation Contributing factors: Anticoagulated. No: Intoxicated Similar symptoms before: Diagnosis (here a month ago for fall with struck head. Normal CT at that time.) Recently seen: Emergency Dept (02/08/21 for AMS and fall. Normal labs at the time.) Review of Systems Unable to obtain: Dementia PD PAST MEDICAL HISTORY - Past Medical History Cardiovascular: Atrial fibrillation Respiratory: None Neuro: None, Dementia Endocrine/Autoimmune: None GI: Chronic constipation : Benign prostate hypertrophy, Retention HEENT: Chronic hearing loss Psych: Depression Musculoskeletal: Osteoarthritis Derm: None - Past Surgical History Past Surgical History: Yes General: Cholecystectomy Ortho: Knee replacement - Present Medications Home Medications: Ambulatory Orders Medication Instructions Recorded Confirmed Metoprolol Tartrate [Lopressor] 50 mg PO DAILY 12/19/20 02/28/21 Tamsulosin [Flomax] 0.4 mg PO DAILY 12/19/20 02/28/21 Warfarin [Coumadin] 5 mg PO DAILY 12/19/20 02/28/21 - Allergies Allergies/Adverse Reactions: Allergies Allergy/AdvReac Type Severity Reaction Status Date / Time morphine Allergy Unknown Verified 02/28/21 20:01 - Social History Does the pt smoke?: No Smoking Status: Former smoker Does the pt drink ETOH?: No Does the pt have substance abuse?: No - Immunizations Immunizations are current?: Yes - POLST Patient has POLST: Yes PD ED PE NORMAL - Vitals Vital signs reviewed: Yes - General General: No acute distress, Well developed/nourished, Other (alert and conversant. hard of hearing; even with hearing aides in place. Pleasant and conv ersant. NAD.) - HEENT HEENT: Other (abrasion with mild local tenderness left upper occiput. ) - Neck Neck: Supple, no meningeal sign, No adenopathy, Other (mild tender upper neck area, but has good ROM (moving neck with poorly fitting c-collar).) - Cardiac Cardiac: No: RRR (irregular but normal rate. ) - Respiratory Respiratory: Clear bilaterally, Other (no chestwall tenderness. ) - Abdomen Abdomen: Soft, Non tender - Back Back: No spinal TTP - Derm Derm: Normal color, Warm and dry - Neuro Neuro: No motor deficit, No sensory deficit, Normal speech Eye Opening: Spontaneous Motor: Obeys Commands Verbal: Confused GCS Score: 14 - Psych Psych: Normal mood Results - Vitals Vitals: Vital Signs - 24 hr 02/28/21 02/28/21 02/28/21 19:52 20:27 20:45 Temperature 36.7 C 36.1 C L Heart Rate 99 91 94 Respiratory 17 13 21 Rate Blood Pressure 102/77 108/67 114/60 O2 Saturation 96 96 98 Oxygen O2 Source Room air - Labs Labs: Laboratory Tests 02/28/21 02/28/21 02/28/21 20:07 20:07 20:07 WBC 6.8 RBC 3.95 L Hgb 13.1 L Hct 40.3 L MCV 102.0 H MCH 33.2 H MCHC 32.5 RDW 13.0 Plt Count 250 MPV 9.1 Neut # (Auto) 4.5 Lymph # (Auto) 1.4 L [place] # (Auto) 0.6 Eos # (Auto) 0.2 Baso # (Auto) 0.1 Absolute Nucleated RBC 0.00 Nucleated RBC % 0.0 PT 32.3 H INR 2.9 H Sodium 142 Potassium 4.2 Chloride 104 Carbon Dioxide 27 Anion Gap 11.0 BUN 46 H Creatinine 1.5 H Estimated GFR (MDRD) 44 L Glucose 125 H Calcium 9.3 - Rads (name of study) head CT Radiology: Prelim report reviewed (no ICH nor acute problem), See rad report cervical CT Radiology: Prelim report reviewed (no fractures), See rad report PD MEDICAL DECISION MAKING - ED course Complexity details: considered differential (superficial lac of scalp, and I put some Dermabond on it to just seal over the area. ), d/w patient Departure - Departure Disposition: 01 Home, Self Care Clinical Impression: Anticoagulant long-term use Fall from slip, trip, or stumble Qualifiers: Encounter type: initial encounter Qualified Code(s): W01.0XXA - Fall on same level from slipping, tripping and stumbling without subsequent striking against object, initial encounter Scalp laceration Qualifiers: Encounter type: initial encounter Qualified Code(s): S01.01XA - Laceration without foreign body of scalp, initial encounter Condition: Stable Follow-Up: Lizbeth Rankin PA [Primary Care Provider] - Comments: Your head and neck CT scans are normal without any signs of bleeding or fractures. Your INR/Coumadin level is 2.9. Continue usual medications. Your blood count and chemistry panel are without any acute problems. I did apply a little glue onto the scalp laceration. Try to keep that dry for a day or 2 and allow the glue to fall off on its own. At that point some ointment to it once or twice daily and recheck if signs of infection. Tylenol if needed for pains. Discharge Date/Time: 02/28/21 21:05
[2021-02-28 20:10] LABS: BASOPHILS # (AUTO) 0.1 10^3/uL (0.0-0.1); BASOPHILS % (AUTO) 1.2 %; EOSINOPHILS # (AUTO) 0.2 10^3/uL (0.0-0.7); EOSINOPHILS % (AUTO) 2.5 %; HCT - HEMATOCRIT 40.3 % (42.0-52.0); HGB - HEMOGLOBIN 13.1 g/dL (14.0-18.0); LYMPHOCYTES # (AUTO) 1.4 10^3/uL (1.5-3.5); LYMPHOCYTES % (AUTO) 20.9 %; MEAN CORPUSCULAR HEMOGLOBIN 33.2 pg (27.0-31.0); MEAN CORPUSCULAR HGB CONC 32.5 g/dL (32.0-36.0); MEAN PLATELET VOLUME 9.1 fL (7.4-11.4); MONOCYTES # (AUTO) 0.6 10^3/uL (0.0-1.0); MONOCYTES % (AUTO) 8.3 %; NEUTROPHILS # (AUTO) 4.5 10^3/uL (1.5-6.6); NEUTROPHILS % (AUTO) 66.8 %; PLT - PLATELET COUNT 250 10^3/uL (130-450); RED BLOOD COUNT 3.95 10^6/uL (4.70-6.10); WHITE BLOOD COUNT 6.8 x10^3/uL (4.8-10.8)
[2021-02-28 20:17] LABS: INR 2.9 (0.8-1.2); PT - PROTHROMBIN TIME 32.3 secs (9.9-12.6)
[2021-02-28 20:20] LABS: CALCIUM 9.3 mg/dL (8.5-10.3); CREATININE 1.5 mg/dL (0.6-1.2); POTASSIUM 4.2 mmol/L (3.5-5.0)
--- NOTE | 2021-02-28 20:35 | CT Report ---
PROCEDURE: CERVICAL SPINE WO INDICATIONS: fall, on Coumadin TECHNIQUE: Noncontrast 3 mm thick sections acquired from the skull base to the T4 level. Sagittal and coronal r eformats were then constructed. For radiation dose reduction, the following was used: automated exp osure control, adjustment of mA and/or kV according to patient size. COMPARISON: None. FINDINGS: Image quality: Excellent. Bones: No fractures or dislocations. Degenerative endplate changes and loss of disc height throughou t cervical spine is seen causing mild to moderate central canal stenosis and bilateral neural foramin al narrowing more prominent at C5-6 and C6-7 levels. Minimal anterolisthesis of C3 on C4 and C4 on C5 is noted. Visualized superior ribs are intact. Soft tissues: Prevertebral soft tissues are normal in thickness. No paravertebral hematomas. No ap ical pneumothoraces. IMPRESSION: 1. No acute cervical spine fracture or dislocation. 2. Degenerative disc disease throughout cervical spine more prominent at C5-6 and C6-7 levels as abov e. Reviewed by: Arias Stark MD on 02/28/2021 8:34 PM PDT Approved by: Arias Stark MD on 02/28/2021 8:34 PM PDT Station ID: [id number]
--- NOTE | 2021-02-28 20:36 | CT Report ---
PROCEDURE: HEAD WO INDICATIONS: fall, struck head, on Coumadin TECHNIQUE: Noncontrast 4.5 mm thick angled axial sections acquired from the foramen magnum to the vertex. For r adiation dose reduction, the following was used: automated exposure control, adjustment of mA and/or kV according to patient size. COMPARISON: 02/08/2021, 02/06/2021 FINDINGS: Image quality: Excellent. CSF spaces: Basal cisterns are patent. No extra-axial fluid collections. The ventricles are symmet marci in size and shape. Brain: No intracranial bleeds or masses. There is cerebral volume loss for age, with resultant vent ricular and sulcal prominence. There are periventricular and deep white matter chronic small vessel ischemic changes. There is intracranial internal carotid artery atherosclerosis. Skull and face: Calvarium and visualized facial bones appear intact, without suspicious lesions. Sinuses: Visualized sinuses and mastoids are clear. IMPRESSION: 1. No CT evidence of acute intracranial pathology. No significant interval changes from previous stud ies. 2. No acute skull fracture. Reviewed by: Arias Stark MD on 02/28/2021 8:35 PM PDT Approved by: Arias Stark MD on 02/28/2021 8:35 PM PDT Station ID: [id number]
[2021-02-28 20:46] VITALS: BP 114/60
== END 2021-02-28 21:05 | disposition home or self-care (01) ==
LOC: EDUNIT# → ED 19:52 → SUPCPDRO 19:52 → ED 21:05
DX: S01.01XA Laceration without foreign body of scalp, initial encounter (principal); W01.0XXA Fall on same level from slipping, tripping and stumbling without subsequent striking against object, initial encounter; Y93.01 Activity, walking, marching and hiking; Y92.009 Unspecified place in unspecified non-institutional (private) residence as the place of occurrence of the external cause; I48.91 Unspecified atrial fibrillation; Z79.01 Long term (current) use of anticoagulants; M50.322 Other cervical disc degeneration at C5-C6 level; Z91.81 History of falling; F03.90 Unspecified dementia, unspecified severity, without behavioral disturbance, psychotic disturbance, mood disturbance, and anxiety; Z87.891 Personal history of nicotine dependence
CPT/HCPCS: 36415; 80048; 85025; 85610; 99281; 99284

== ENCOUNTER 2021-03-15 14:16 | Outpatient (CLI) | payer MEDICARE | END 2021-03-15 14:17 | disposition home or self-care (01) | LOC: LAB 14:16 | PROVIDERS: ATTEND Family Medicine | DX: Z79.01 Long term (current) use of anticoagulants (principal) | CPT/HCPCS: 36416; 85610 ==

== ENCOUNTER 2021-04-15 15:10 | Emergency (ER) | payer MEDICARE ==
[2021-04-15 15:20] VITALS: BP 96/60
--- NOTE | 2021-04-15 15:31 | ED Physician Documentation ---
PD HPI UPPER EXT INJURY - Stated complaint Stated Complaint: FALL - Chief complaint Chief Complaint: Trauma Ext - History obtained from History obtained from: Family (daughter) - Additonal information Additional information: 85-year-old gentleman with Dementia, unknown tetanus status. He was on warfarin but stopped 2 weeks ago due to frequent falls. Fell today, has a skin tear on the right elbow and complaining of wrist pain. No head injury. Review of Systems Unable to obtain: Dementia PD PAST MEDICAL HISTORY - Past Medical History Cardiovascular: Atrial fibrillation Respiratory: None Neuro: None, Dementia Endocrine/Autoimmune: None GI: Chronic constipation : Benign prostate hypertrophy, Retention HEENT: Chronic hearing loss Psych: Depression Musculoskeletal: Osteoarthritis Derm: None - Past Surgical History Past Surgical History: Yes General: Cholecystectomy Ortho: Knee replacement - Present Medications Home Medications: Ambulatory Orders Medication Instructions Recorded Confirmed Metoprolol Tartrate [Lopressor] 50 mg PO DAILY 12/19/20 02/28/21 Tamsulosin [Flomax] 0.4 mg PO DAILY 12/19/20 02/28/21 Warfarin [Coumadin] 5 mg PO DAILY 12/19/20 02/28/21 - Allergies Allergies/Adverse Reactions: Allergies Allergy/AdvReac Type Severity Reaction Status Date / Time morphine Allergy Unknown Verified 04/15/21 15:17 - Social History Does the pt smoke?: No Smoking Status: Former smoker Does the pt drink ETOH?: No Does the pt have substance abuse?: No - Immunizations Immunizations are current?: Yes - POLST Patient has POLST: Yes PD ED PE NORMAL - Vitals Vital signs reviewed: Yes - General General: Other (He is alert and oriented to person but not place or time or events) - HEENT HEENT: PERRL, EOMI - Neck Neck: Supple, no meningeal sign, No bony TTP - Extremities Extremities: Other (Mild tenderness of the dorsal wrist on the right, there is a half dollar sized nontender skin tear over the right olecranon.) - Neuro Neuro: Normal speech Eye Opening: Spontaneous Motor: Obeys Commands Verbal: Confused GCS Score: 14 Results - Vitals Vitals: Vital Signs - 24 hr 04/15/21 15:17 Temperature 36.5 C Heart Rate 78 Respiratory 16 Rate Blood Pressure 96/60 O2 Saturation 92 Oxygen O2 Source Room air - Rads (name of study) 4 view x-ray of the right wrist is without obvious abnormality noting advanced degenerative change Radiology: EMP read contemporaneously PD MEDICAL DECISION MAKING - ED course ED course: 85-year-old gentleman with fall, ground-level. Social work saw him and the daughter since she is the primary caregiver and it sounds like she could use some respite options. He had a skin tear on the right elbow that was dressed and the x-ray of the right wrist was negative. Departure - Departure Disposition: 01 Home, Self Care Clinical Impression: Right wrist sprain Qualifiers: Encounter type: initial encounter Qualified Code(s): S63.501A - Unspecified sprain of right wrist, initial encounter Skin tear of right elbow without complication Qualifiers: Encounter type: initial encounter Qualified Code(s): S51.011A - Laceration without foreign body of right elbow, initial encounter Condition: Good Record reviewed to determine appropriate education?: Yes Instructions: ED Sprain Wrist Comments: For the skin tear you can leave the Mepitel on, he can wash with soap and water. The Mepitel can be removed in a week or 2 if it does not come off on its own. For the wrist sprain, Tylenol as needed for pain. Ice and rest generally. Recheck with your doctor if not better in a week. Discharge Date/Time: 04/15/21 16:34
[2021-04-15] MEDS: TETANUS/DIPHTHERIA/PERTUSSIS 0.5 ML SYRINGE IM ONE (15:40)
--- NOTE | 2021-04-15 16:01 | XRAY Report ---
PROCEDURE: Wrist 4 View RT INDICATIONS: Trauma TECHNIQUE: 4 views of the wrist were acquired. COMPARISON: None FINDINGS: Bones: No fractures or dislocations. No suspicious bony lesions. Focal degenerative change is seen involving the first carpometacarpal joint, with milder degenerative changes seen elsewhere. Scaphoid view: No scaphoid fractures are seen. Soft tissues: Numerous areas of soft tissue calcification can be seen, including along the triangular fibrocartilage. IMPRESSION: Extensive degenerative changes, without a displaced fracture identified. If there is focal tenderness (or other strong clinical concern for a fracture that is not seen on thi s plain film study) then please consider a dedicated CT for further evaluation. Reviewed by: Robert Garcia MD on 04/15/2021 3:00 PM [facility] Approved by: Robert Garcia MD on 04/15/2021 3:00 PM [facility] Station ID: [id number]
== END 2021-04-15 16:34 | disposition home or self-care (01) ==
LOC: ED 15:10
DX: S63.501A Unspecified sprain of right wrist, initial encounter (principal); S51.011A Laceration without foreign body of right elbow, initial encounter; W06.XXXA Fall from bed, initial encounter; Z23 Encounter for immunization; R29.6 Repeated falls; M19.031 Primary osteoarthritis, right wrist; F03.90 Unspecified dementia, unspecified severity, without behavioral disturbance, psychotic disturbance, mood disturbance, and anxiety; Z87.891 Personal history of nicotine dependence
CPT/HCPCS: 90471; 99281; 99283

== ENCOUNTER 2021-05-17 18:54 | Outpatient (CLI) | payer MEDICARE | END 2021-05-17 18:55 | disposition critical access hospital (66) | LOC: EMS 18:54 | DX: R41.82 Altered mental status, unspecified (principal); I48.91 Unspecified atrial fibrillation; I95.9 Hypotension, unspecified | CPT/HCPCS: A0425; A0427 ==

== ENCOUNTER 2021-05-17 19:00 | Emergency (ER) | payer MEDICARE ==
--- NOTE | 2021-05-17 19:09 | ED Physician Documentation ---
History of Present Illness - Stated complaint Stated Complaint: LETHARGY - History obtained from History obtained from: EMS - Additonal information Additional information: 85-year-old gentleman with A. fib, reportedly recently taken off of warfarin because of recent falls. He has dementia. He is brought in by ambulance because sounds like he has had a flulike syndrome for the last days or so and tonight became less responsive. EMS found him to have initial blood pressure of 68/30 but that was not replicated on subsequent blood pressures which were normal. He is in A. fib. Patient is very demented and unable to provide any history, he is able to state his name but not where he is or why. Spoke with daughter by phone: sick for about a week with the "flu," with runny nose, cough. Then had an episode tonight where he was hard to get him out of bed d/u weakness and did not want to drink coffee, which is very atypical. Near syncopal at the table. Review of Systems Unable to obtain: Dementia PD PAST MEDICAL HISTORY - Past Medical History Cardiovascular: Atrial fibrillation Respiratory: None Neuro: None, Dementia Endocrine/Autoimmune: None GI: Chronic constipation : Benign prostate hypertrophy, Retention HEENT: Chronic hearing loss Psych: Depression Musculoskeletal: Osteoarthritis Derm: None - Past Surgical History Past Surgical History: Yes General: Cholecystectomy Ortho: Knee replacement - Present Medications Home Medications: Ambulatory Orders Medication Instructions Recorded Confirmed Metoprolol Tartrate [Lopressor] 50 mg PO DAILY 12/19/20 05/17/21 Tamsulosin [Flomax] 0.4 mg PO DAILY 12/19/20 05/17/21 - Allergies Allergies/Adverse Reactions: Allergies Allergy/AdvReac Type Severity Reaction Status Date / Time morphine Allergy Unknown Verified 05/17/21 19:10 - Social History Does the pt smoke?: No Smoking Status: Former smoker Does the pt drink ETOH?: No Does the pt have substance abuse?: No - Immunizations Immunizations are current?: Yes - POLST Patient has POLST: Yes PD ED PE NORMAL - Vitals Vital signs reviewed: Yes - General General: No acute distress, Other (Alert and oriented to person only, not in any distress.) - HEENT HEENT: PERRL, EOMI - Neck Neck: Supple, no meningeal sign, No bony TTP - Cardiac Cardiac: Other (A. fib with a rate of about 120 with occasional extrasystoles on the monitor and no murmur) - Respiratory Respiratory: No respiratory distress, Clear bilaterally - Abdomen Abdomen: Non tender - Back Back: No CVA TTP, No spinal TTP - Derm Derm: Normal color, Warm and dry - Neuro Neuro: No motor deficit (Seems to have grossly symmetric strength in all 4 extremities.) Eye Opening: Spontaneous Motor: Obeys Commands Verbal: Confused GCS Score: 14 Results - Vitals Vitals: Vital Signs - 24 hr 05/17/21 05/17/21 05/17/21 19:02 19:29 19:39 Temperature 35.9 C L Heart Rate 110 H Heart Rate [ 110 H Sitting] Heart Rate [ 108 H Standing] Heart Rate [ 111 H Supine] Respiratory 21 Rate Blood Pressure 104/72 Blood Pressure 96/59 L [Sitting] Blood Pressure 82/69 L [Standing] Blood Pressure 89/59 L [Supine] O2 Saturation 95 05/17/21 05/17/21 20:28 21:09 Temperature Heart Rate Heart Rate [ 86 Sitting] Heart Rate [ 83 Standing] Heart Rate [ 97 Supine] Respiratory 15 Rate Blood Pressure 95/49 L Blood Pressure 121/81 H [Sitting] Blood Pressure 114/73 [Standing] Blood Pressure 85/61 L [Supine] O2 Saturation 92 Oxygen O2 Source Room air - EKG (time done) 1903 Rate: Rate (enter#) (115) Rhythm: Atrial fibrillation [place]: Normal Ischemia: Q waves, Non specific changes. No: ST elevation c/w ischemia, ST dep ression - Labs Labs: Laboratory Tests 05/17/21 05/17/21 05/17/21 19:18 19:18 19:18 WBC 6.5 RBC 4.69 L Hgb 15.4 Hct 46.1 MCV 98.3 H MCH 32.8 H MCHC 33.4 RDW 13.0 Plt Count 198 MPV 9.1 Neut # (Auto) 4.0 Lymph # (Auto) 1.9 [place] # (Auto) 0.4 Eos # (Auto) 0.1 Baso # (Auto) 0.1 Absolute Nucleated RBC 0.00 Nucleated RBC % 0.0 PT 12.6 INR 1.1 Sodium 138 Potassium 3.8 Chloride 101 Carbon Dioxide 25 Anion Gap 12.0 BUN 34 H Creatinine 1.1 Estimated GFR (MDRD) 63 L Glucose 103 H Lactic Acid Calcium 9.5 Magnesium 1.9 Troponin I High Sens Nasal Adenovirus (PCR) Nasal B. parapertussis DNA (PCR) Nasal Coronavir 229E PCR Nasal Coronavir HKU1 PCR Nasal Coronavir NL63 PCR Nasal Coronavir OC43 PCR Nasal Enterovir/Rhinovir PCR Nasal Influenza B PCR Nasal Influenza A PCR Nasal Parainfluen 1 PCR Nasal Parainfluen 2 PCR Nasal Parainfluen 3 PCR Nasal Parainfluen 4 PCR Nasal RSV (PCR) Nasal B.pertussis DNA PCR Nasal C.pneumoniae (PCR) Bruno Human Metapneumo PCR Nasal M.pneumoniae (PCR) Nasal SARS-CoV-2 (PCR) 05/17/21 05/17/21 05/17/21 19:18 20:10 20:16 WBC RBC Hgb Hct MCV MCH MCHC RDW Plt Count MPV Neut # (Auto) Lymph # (Auto) [place] # (Auto) Eos # (Auto) Baso # (Auto) Absolute Nucleated RBC Nucleated RBC % PT INR Sodium Potassium Chloride Carbon Dioxide Anion Gap BUN Creatinine Estimated GFR (MDRD) Glucose Lactic Acid 2.2 Calcium Magnesium Troponin I High Sens 14.6 Nasal Adenovirus (PCR) NOT DETECTED Nasal B. parapertussis DNA (PCR) NOT DETECTED Nasal Coronavir 229E PCR NOT DETECTED Nasal Coronavir HKU1 PCR NOT DETECTED Nasal Coronavir NL63 PCR NOT DETECTED Nasal Coronavir OC43 PCR NOT DETECTED Nasal Enterovir/Rhinovir PCR NOT DETECTED Nasal Influenza B PCR NOT DETECTED Nasal Influenza A PCR NOT DETECTED Nasal Parainfluen 1 PCR NOT DETECTED Nasal Parainfluen 2 PCR NOT DETECTED Nasal Parainfluen 3 PCR NOT DETECTED Nasal Parainfluen 4 PCR NOT DETECTED Nasal RSV (PCR) DETECTED A Nasal B.pertussis DNA PCR NOT DETECTED Nasal C.pneumoniae (PCR) NOT DETECTED Bruno Human Metapneumo PCR NOT DETECTED Nasal M.pneumoniae (PCR) NOT DETECTED Nasal SARS-CoV-2 (PCR) NOT DETECTED PD MEDICAL DECISION MAKING - ED course ED course: 85yo male with severe dementia with weakness and presyncope in the setting of the whole family with viral URI. Covid neg but RSV positive. O/W had some osft BP here better after IVF and labs c/w hemoconcentration, usual Hgb around 13. No evidence of cardiac dz here. Daughter happy to bring him home. Departure - Departure Disposition: Home, Self Care Clinical Impression: Near syncope, RSV infection Afib Qualifiers: Atrial fibrillation type: permanent Qualified Code(s): I48.21 - Permanent atrial fibrillation Dementia Qualifiers: Dementia type: unspecified type Dementia behavioral disturbance: without behavioral disturbance Qualified Code(s): F03.90 - Unspecified dementia without behavioral disturbance Condition: Stable Record reviewed to determine appropriate education?: Yes Instructions: ED Afib, ED Dementia Caregiver Support Comments: Call your doctor to arrange a follow-up appointment, make the next available appointment. In the interim, return anytime if worse or if new symptoms develop. Discharge Date/Time: 05/17/21 22:03
[2021-05-17 19:25] LABS: BASOPHILS # (AUTO) 0.1 10^3/uL (0.0-0.1); BASOPHILS % (AUTO) 0.9 %; EOSINOPHILS # (AUTO) 0.1 10^3/uL (0.0-0.7); EOSINOPHILS % (AUTO) 1.5 %; HCT - HEMATOCRIT 46.1 % (42.0-52.0); HGB - HEMOGLOBIN 15.4 g/dL (14.0-18.0); LYMPHOCYTES # (AUTO) 1.9 10^3/uL (1.5-3.5); LYMPHOCYTES % (AUTO) 29.6 %; MEAN CORPUSCULAR HEMOGLOBIN 32.8 pg (27.0-31.0); MEAN CORPUSCULAR HGB CONC 33.4 g/dL (32.0-36.0); MEAN CORPUSCULAR VOLUME 98.3 fL (80.0-94.0); MEAN PLATELET VOLUME 9.1 fL (7.4-11.4); MONOCYTES # (AUTO) 0.4 10^3/uL (0.0-1.0); MONOCYTES % (AUTO) 6.3 %; NEUTROPHILS % (AUTO) 61.4 %; PLT - PLATELET COUNT 198 10^3/uL (130-450); RED BLOOD COUNT 4.69 10^6/uL (4.70-6.10); WHITE BLOOD COUNT 6.5 x10^3/uL (4.8-10.8)
[2021-05-17 19:31] LABS: INR 1.1 (0.8-1.2); PT - PROTHROMBIN TIME 12.6 secs (9.9-12.6)
[2021-05-17 19:33] LABS: CALCIUM 9.5 mg/dL (8.5-10.3); CREATININE 1.1 mg/dL (0.6-1.2); MAGNESIUM 1.9 mg/dL (1.7-2.8); POTASSIUM 3.8 mmol/L (3.5-5.0)
--- NOTE | 2021-05-17 19:33 | XRAY Report ---
PROCEDURE: Chest 1 View X-Ray INDICATIONS: Weakness TECHNIQUE: One view of the chest was acquired. COMPARISON: None FINDINGS: Surgical changes and devices: None. Lungs and pleura: No pleural effusions or pneumothorax. Lungs are clear. Mediastinum: Mediastinal contours appear normal. Heart size is normal. Bones and chest wall: No suspicious bony lesions. Overlying soft tissues appear unremarkable. IMPRESSION: No acute finding. Reviewed by: Carlos Blanco MD on 05/17/2021 7:32 PM [facility] Approved by: Carlos Blanco MD on 05/17/2021 7:32 PM PST Station ID: [id number]
[2021-05-17] MEDS ORDERED: SODIUM CHLORIDE 0.9% 1,000 ML IV STA (19:40)
[2021-05-17 21:10] VITALS: BP 85/61
[2021-05-17 21:20] LABS: B. PARAPERTUSSIS- RESP PCR PAN NOT DETECTED; B. PERTUSSIS- RESP PCR PANEL NOT DETECTED; C. PNEUMONIAE- RESP PCR PANEL NOT DETECTED; CORONAVIRUS 229E-RESP PCR NOT DETECTED; CORONAVIRUS HKU1-RESP PCR NOT DETECTED; CORONAVIRUS NL63-RESP PCR NOT DETECTED; CORONAVIRUS OC43-RESP PCR NOT DETECTED; HUMAN METAPNEUMOVIRUS NOT DETECTED; INFLUENZA A- RESP PCR PANEL NOT DETECTED; INFLUENZA B - RESP PCR PANEL NOT DETECTED; M. PNEUMONIAE- RESP PCR PANEL NOT DETECTED; PARAINFLUENZA VIRUS 1 NOT DETECTED; PARAINFLUENZA VIRUS 2 NOT DETECTED; PARAINFLUENZA VIRUS 3 NOT DETECTED; PARAINFLUENZA VIRUS 4 NOT DETECTED; RHINOVIRUS/ENTEROVIRUS NOT DETECTED; RSV- RESP PCR PANEL DETECTED; SARS-CoV-2 -RESP PCR PANEL NOT DETECTED
== END 2021-05-17 22:03 | disposition home or self-care (01) ==
LOC: ED 19:00
DX: I48.21 Permanent atrial fibrillation (principal); B97.4 Respiratory syncytial virus as the cause of diseases classified elsewhere; F03.90 Unspecified dementia, unspecified severity, without behavioral disturbance, psychotic disturbance, mood disturbance, and anxiety; Z87.891 Personal history of nicotine dependence; Z20.822 Contact with and (suspected) exposure to COVID-19
CPT/HCPCS: 0202U; 36415; 80048; 83605; 83735; 84484; 85025; 85610; 87040; 93005; 96360; 99285

== ENCOUNTER 2021-06-24 12:04 | Outpatient (CLI) | payer MEDICARE | END 2021-06-24 12:05 | disposition critical access hospital (66) | LOC: EMS 12:04 | DX: R19.00 Intra-abdominal and pelvic swelling, mass and lump, unspecified site (principal) | CPT/HCPCS: A0425; A0429 ==

== ENCOUNTER 2021-06-24 12:11 | Emergency (ER) | payer MEDICARE ==
[2021-06-24 12:49] LABS: BASOPHILS % (AUTO) 0.3 %; EOSINOPHILS % (AUTO) 0.1 %; HGB - HEMOGLOBIN 15.3 g/dL (14.0-18.0); LYMPHOCYTES # (AUTO) 0.8 10^3/uL (1.5-3.5); LYMPHOCYTES % (AUTO) 5.8 %; MEAN CORPUSCULAR HEMOGLOBIN 31.8 pg (27.0-31.0); MEAN CORPUSCULAR HGB CONC 33.3 g/dL (32.0-36.0); MEAN CORPUSCULAR VOLUME 95.6 fL (80.0-94.0); MEAN PLATELET VOLUME 9.2 fL (7.4-11.4); MONOCYTES # (AUTO) 0.8 10^3/uL (0.0-1.0); MONOCYTES % (AUTO) 5.3 %; NEUTROPHILS # (AUTO) 12.4 10^3/uL (1.5-6.6); NEUTROPHILS % (AUTO) 88.1 %; PLT - PLATELET COUNT 277 10^3/uL (130-450); RED BLOOD COUNT 4.81 10^6/uL (4.70-6.10); RED CELL DISTRIBUTION WIDTH 13.3 % (12.0-15.0); WHITE BLOOD COUNT 14.1 x10^3/uL (4.8-10.8)
--- NOTE | 2021-06-24 12:49 | ED Physician Documentation ---
History of Present Illness - Stated complaint Stated Complaint: ABD DISTENSION - Chief complaint Chief Complaint: Abd Pain - History obtained from History obtained from: Patient, Family, EMS - History of Present Illness Timing: Today Pain level max: 0 Pain level now: 0 - Additonal information Additional information: Patient is an 85-year-old male who presents to the emergency department with EMS. He is severely demented and unable to give any history. Per EMS, family noted lower abdomen was swollen today. No other history is available. Review of Systems Unable to obtain: Confused, Dementia PD PAST MEDICAL HISTORY - Past Medical History Cardiovascular: Atrial fibrillation Respiratory: None Neuro: None, Dementia Endocrine/Autoimmune: None GI: Chronic constipation : Benign prostate hypertrophy, Retention HEENT: Chronic hearing loss Psych: Depression Musculoskeletal: Osteoarthritis Derm: None - Past Surgical History Past Surgical History: Yes General: Cholecystectomy Ortho: Knee replacement - Present Medications Home Medications: Ambulatory Orders Medication Instructions Recorded Confirmed Metoprolol Tartrate [Lopressor] 50 mg PO DAILY 12/19/20 05/17/21 Tamsulosin [Flomax] 0.4 mg PO DAILY 12/19/20 05/17/21 Cefpodoxime Proxetil [Vantin] 100 mg PO Q12H #14 tablet 06/24/21 - Allergies Allergies/Adverse Reactions: Allergies Allergy/AdvReac Type Severity Reaction Status Date / Time morphine Allergy Unknown Verified 05/17/21 19:10 - Social History Does the pt smoke?: No Smoking Status: Former smoker Does the pt drink ETOH?: No Does the pt have substance abuse?: No - Immunizations Immunizations are current?: Yes - POLST Patient has POLST: Yes PD ED PE NORMAL - Vitals Vital signs reviewed: Yes - General General: Other (alert, pleasant) - HEENT HEENT: Moist mucous membranes - Neck Neck: Supple, no meningeal sign - Cardiac Cardiac: Other (Irregular) - Respiratory Respiratory: No respiratory distress, Clear bilaterally - Abdomen Abdomen: Soft, Other (Tender to palpation suprapubic with distention) - Derm Derm: Warm and dry - Neuro Neuro: Alert and oriented X 3 - Psych Psych: Normal mood, Normal affect Results - Vitals Vitals: Vital Signs - 24 hr 06/24/21 06/24/21 06/24/21 12:15 12:23 14:23 Temperature 37.1 C 37.1 C Heart Rate 120 H 120 H 130 H Respiratory 19 19 16 Rate Blood Pressure 102/62 102/62 138/92 H O2 Saturation 100 100 100 Oxygen O2 Source Room air - Labs Labs: Laboratory Tests 06/24/21 06/24/21 06/24/21 12:37 12:37 13:05 WBC 14.1 H RBC 4.81 Hgb 15.3 Hct 46.0 MCV 95.6 H MCH 31.8 H MCHC 33.3 RDW 13.3 Plt Count 277 MPV 9.2 Neut # (Auto) 12.4 H Lymph # (Auto) 0.8 L [place] # (Auto) 0.8 Eos # (Auto) 0.0 Baso # (Auto) 0.0 Absolute Nucleated RBC 0.00 Nucleated RBC % 0.0 Sodium 138 Potassium 3.9 Chloride 103 Carbon Dioxide 22 Anion Gap 13.0 BUN 73 H Creatinine 1.8 H Estimated GFR (MDRD) 36 L Glucose 88 Calcium 9.0 Total Bilirubin 0.8 AST 24 ALT 21 Alkaline Phosphatase 127 H Total Protein 7.2 Albumin 3.2 Globulin 4.0 Albumin/Globulin Ratio 0.8 L Lipase 36 Urine Color YELLOW Urine Clarity CLOUDY Urine pH 7.0 Ur Specific [place] 1.010 Urine Protein 30 H Urine Glucose (UA) NEGATIVE Urine Ketones NEGATIVE Urine Occult Blood SMALL H Urine Nitrite NEGATIVE Urine Bilirubin NEGATIVE Urine Urobilinogen 0.2 (NORMAL) Ur Leukocyte Esterase LARGE H Urine RBC 0-5 Urine WBC >25 H Ur Squamous Epith Cells RARE Squamous Urine Bacteria Moderate H Ur Microscopic Review INDICATED Urine Culture Comments INDICATED PD MEDICAL DECISION MAKING - ED course Complexity details: reviewed results, considered differential, d/w family ED course: Patient with acute urinary retention. Arias catheter placed. About 2500 mL of urine was drained. Then purulence was draining from the bladder. This was flushed and irrigated. We will treat for UTI. Arias catheter is left in place. Given Rocephin IM and will place on oral antibiotics. Afebrile. Well- appearing, nontoxic. No evidence of sepsis. Ambulating well with a walker. Discussed the case with his daughter, she will come and pick him up and take him home. This document was made in part using voice recognition software. While efforts are made to proofread this document, sound alike and grammatical errors may occur. Departure - Departure Disposition: Home, Self Care Clinical Impression: Acute urinary retention Dementia Qualifiers: Dementia type: unspecified type Dementia behavioral disturbance: without beh avioral disturbance Qualified Code(s): F03.90 - Unspecified dementia without behavioral disturbance UTI (urinary tract infection) Qualifiers: Urinary tract infection type: acute cystitis Hematuria presence: without hematuria Qualified Code(s): N30.00 - Acute cystitis without hematuria Condition: Good Instructions: ED Catheter Care Arias, ED UTI Cystitis Male Follow-Up: your,doctor in 1 week [Other] Prescriptions: Cefpodoxime Proxetil [Vantin] 100 mg PO Q12H #14 tablet Comments: Your prescriptions were sent to [facility] in [place]. Please take all antibiotics until gone. Follow-up with your doctor at the end of this week to see if the catheter can be removed. Discharge Date/Time: 06/24/21 15:39
[2021-06-24 13:03] LABS: ALBUMIN 3.2 g/dL (3.2-5.5); ALBUMIN/GLOBULIN RATIO 0.8 (1.0-2.2); BILIRUBIN,TOTAL 0.8 mg/dL (0.2-1.0); CREATININE 1.8 mg/dL (0.6-1.2); POTASSIUM 3.9 mmol/L (3.5-5.0); TOTAL PROTEIN 7.2 g/dL (6.7-8.2)
[2021-06-24 13:27] LABS: BILIRUBIN,URINE NEGATIVE (NEGATIVE); GLUCOSE, URINE (UA) NEGATIVE (NEGATIVE); KETONES,URINE (UA) NEGATIVE (NEGATIVE); LEUKOCYTE ESTERASE, URINE LARGE (NEGATIVE); NITRITE,URINE NEGATIVE (NEGATIVE); OCCULT BLOOD,URINE SMALL (NEGATIVE); PROTEIN,URINE 30 mg/dL (NEGATIVE); UROBILINOGEN,URINE 0.2 (NORMAL) E.U./dL (NORMAL)
[2021-06-24 13:32] LABS: CLARITY,URINE CLOUDY (CLEAR)
[2021-06-24 13:36] LABS: BACTERIA,URINE Moderate /HPF (None Seen); RBC,URINE 0-5 /HPF (0-5); SQUAMOUS EPITHELIAL CELL,UR RARE Squamous (<= Few); WBC,URINE >25 /HPF (0-3)
[2021-06-24] MEDS ORDERED: cefTRIAXone 1 GM VIAL IVP STA (13:56)
[2021-06-24] MEDS ORDERED: cefTRIAXone 1 GM VIAL IM STA (14:01)
[2021-06-24 14:35] VITALS: BP 138/92
== END 2021-06-24 15:39 | disposition home or self-care (01) ==
LOC: EDUNIT# → ED 12:11
DX: N40.1 Benign prostatic hyperplasia with lower urinary tract symptoms (principal); R33.8 Other retention of urine; N30.00 Acute cystitis without hematuria; F03.90 Unspecified dementia, unspecified severity, without behavioral disturbance, psychotic disturbance, mood disturbance, and anxiety; I48.91 Unspecified atrial fibrillation; Z87.891 Personal history of nicotine dependence
CPT/HCPCS: 36415; 51700; 80053; 81001; 81003; 83690; 85025; 87077; 87086; 99281

== ENCOUNTER 2021-07-07 20:58 | Outpatient (CLI) | payer MEDICARE | END 2021-07-07 20:59 | disposition critical access hospital (66) | LOC: EMS 20:58 | DX: T17.928A Food in respiratory tract, part unspecified causing other injury, initial encounter (principal) | CPT/HCPCS: A0425; A0429 ==

== ENCOUNTER 2021-07-07 21:03 | Emergency (ER) | payer MEDICARE ==
--- NOTE | 2021-07-07 21:55 | XRAY Report ---
PROCEDURE: Chest 1 View X-Ray INDICATIONS: choking episode TECHNIQUE: One view of the chest was acquired. COMPARISON: None FINDINGS: Surgical changes and devices: Cholecystectomy clips.. Lungs and pleura: No pleural effusions or pneumothorax. Low lung volumes. Mediastinum: Mediastinal contours appear normal. Heart size is normal. Bones and chest wall: No suspicious bony lesions. Overlying soft tissues appear unremarkable. IMPRESSION: 1. Chronic low lung volumes with symmetric inflation. Reviewed by: Belen Oates MD on 07/07/2021 9:54 PM PST Approved by: Belen Oates MD on 07/07/2021 9:54 PM PST Station ID: [id number]
--- NOTE | 2021-07-07 22:17 | ED Physician Documentation ---
History of Present Illness - Stated complaint Stated Complaint: CHOKING/SOA - Chief complaint Chief Complaint: Heent - History obtained from History obtained from: Family (daughter by phone Tierra Louise), EMS - History of Present Illness Timing: Today - Additonal information Additional information: 85-year-old male with a history of atrial fibrillation and advanced dementia has been having some trouble swallowing food and water and has a speech therapist that has been coming to his home to assist. The patient's daughter indicates that this evening she fed him some noodle casserole and the patient began to choke and cough and appeared to be in distress. She called 911 and shortly after medics arrived he was able to cough up a piece of noodle and has now been breathing normally. The patient is unable to assist in the history at all. He can say his name but he cannot follow commands to take a deep breath. The patient was recently seen with urinary retention and urinary tract infection a Arias catheter was placed draining 2500 mL he had the catheter in place for approximately 5 days when his daughter remove the catheter he has been on Vantin since that incident. Review of Systems Unable to obtain: Dementia, Other (ROS from daughter over the phone) Constitutional: denies: Fever Nose: denies: Congestion Throat: denies: Sore throat Respiratory: denies: Dyspnea, Cough GI: denies: Vomiting, Constipation, Diarrhea : denies: Dysuria Skin: denies: Rash Musculoskeletal: denies: Extremity swelling Neurologic: reports: Other (advanced dementia). denies: Generalized weakness, Focal weakness, Numbness PD PAST MEDICAL HISTORY - Past Medical History Cardiovascular: Atrial fibrillation Respiratory: None Neuro: None, Dementia Endocrine/Autoimmune: None GI: Chronic constipation : Benign prostate hypertrophy, Retention HEENT: Chronic hearing loss Psych: Depression Musculoskeletal: Osteoarthritis Derm: None - Past Surgical History Past Surgical History: Yes General: Cholecystectomy Ortho: Knee replacement - Present Medications Home Medications: Ambulatory Orders Medication Instructions Recorded Confirmed Metoprolol Tartrate [Lopressor] 50 mg PO DAILY 12/19/20 07/07/21 Tamsulosin [Flomax] 0.4 mg PO DAILY 12/19/20 07/07/21 - Allergies Allergies/Adverse Reactions: Allergies Allergy/AdvReac Type Severity Reaction Status Date / Time morphine Allergy Unknown Verified 07/07/21 21:14 - Social History Does the pt smoke?: No Smoking Status: Former smoker Does the pt drink ETOH?: No Does the pt have substance abuse?: No - Immunizations Immunizations are current?: Yes - POLST Patient has POLST: Yes PD ED PE NORMAL - Vitals Vital signs reviewed: Yes - General General: No acute distress, Other (Thin elderly male in no distress has excessive speech latency without content to the response. Excessive delay in execution of motor commands. ) - HEENT HEENT: Atraumatic, PERRL, EOMI, Pharynx benign - Neck Neck: Supple, no meningeal sign, No bony TTP - Cardiac Cardiac: Other (irregularly irregular with 2/6 short systolic murmer) - Respiratory Respiratory: No respiratory distress, Other (diminished breath sounds consistent with failure to perform deep breathing. ) - Abdomen Abdomen: Soft, Non tender - Back Back: No CVA TTP, No spinal TTP - Derm Derm: Normal color, Warm and dry, No rash - Extremities Extremities: No deformity, No edema - Neuro Neuro: No motor deficit, No sensory deficit Eye Opening: Spontaneous Motor: Localizes to Pain Verbal: Confused GCS Score: 13 - Psych Psych: Normal mood, Normal affect Results - Vitals Vitals: Vital Signs - 24 hr 07/07/21 21:05 Temperature 36.6 C Heart Rate 100 Respiratory 16 Rate Blood Pressure 110/67 O2 Saturation 100 Oxygen O2 Source Room air - Rads (name of study) chest Radiology: Prelim report reviewed (Impression: 1. Chronic low lung volumes with symmetric inflation.), EMP read indepedently, See rad report PD MEDICAL DECISION MAKING - ED course Complexity details: reviewed old records, reviewed results, re-evaluated patient, considered differential, d/w patient ED course: 85-year-old male with advanced dementia who has been having some difficulty with swallowing and choking has choked this evening he did cough up a piece of food and has resolved his symptoms. A chest x-ray was performed for concerns of aspiration with symmetric expansion and no infiltrate. I was able to contact and talk to the patient's daughter Samra Louise [phone] and she indicates that he has had some difficulty with swallowing food but he is still feeding himself and he occasionally will even choke on water. He has a speech therapist that is working with him. The daughter is disappointed in how rapidly the patient's dementia has progressed. She notes that in December of last year he was living independently. I did discuss with the daughter use of a feeding tube and I discouraged this. She was in agreement. Departure - Departure Disposition: 01 Home, Self Care Clinical Impression: Choking episode Dementia Qualifiers: Dementia type: unspecified type Dementia behavioral disturbance: without behavioral disturbance Qualified Code(s): F03.90 - Unspecified dementia without behavioral disturbance Condition: Stable Instructions: ED Choking Spell Follow-Up: JANKI MONROY MD [Primary Care Provider] - Comments: Tonight it appears that Vishal has choked on his food and he appears to have c oughed up any obstruction. He appears to be breathing well. Within the week if he develops signs of respiratory distress a follow-up visit with his primary care doctor or return visit to the emergency department is indicated for potential aspiration pneumonia. Continue to work with the speech therapist with regards to Vishal's swallowing ability.
[2021-07-07 22:50] VITALS: BP 112/64
== END 2021-07-07 22:48 | disposition home or self-care (01) ==
LOC: EDBD → EDUNIT# → ED 21:03
DX: T17.928A Food in respiratory tract, part unspecified causing other injury, initial encounter (principal); F03.90 Unspecified dementia, unspecified severity, without behavioral disturbance, psychotic disturbance, mood disturbance, and anxiety; Z87.891 Personal history of nicotine dependence
CPT/HCPCS: 99283

== ENCOUNTER 2021-07-12 14:46 | Outpatient (CLI) | payer MEDICARE | END 2021-07-12 23:59 | disposition critical access hospital (66) | LOC: EMS 14:46 | DX: R41.82 Altered mental status, unspecified (principal) | CPT/HCPCS: A0425; A0429 ==

== ENCOUNTER 2021-07-12 14:50 | Emergency (ER) | payer MEDICARE ==
[2021-07-12 15:30] LABS: BASOPHILS # (AUTO) 0.1 10^3/uL (0.0-0.1); BASOPHILS % (AUTO) 0.9 %; EOSINOPHILS # (AUTO) 0.1 10^3/uL (0.0-0.7); EOSINOPHILS % (AUTO) 1.5 %; HCT - HEMATOCRIT 40.1 % (42.0-52.0); HGB - HEMOGLOBIN 13.1 g/dL (14.0-18.0); LYMPHOCYTES # (AUTO) 1.3 10^3/uL (1.5-3.5); LYMPHOCYTES % (AUTO) 23.4 %; MEAN CORPUSCULAR HEMOGLOBIN 31.4 pg (27.0-31.0); MEAN CORPUSCULAR HGB CONC 32.7 g/dL (32.0-36.0); MEAN CORPUSCULAR VOLUME 96.2 fL (80.0-94.0); MEAN PLATELET VOLUME 9.4 fL (7.4-11.4); MONOCYTES # (AUTO) 0.5 10^3/uL (0.0-1.0); MONOCYTES % (AUTO) 9.4 %; NEUTROPHILS # (AUTO) 3.6 10^3/uL (1.5-6.6); NEUTROPHILS % (AUTO) 64.6 %; PLT - PLATELET COUNT 231 10^3/uL (130-450); RED BLOOD COUNT 4.17 10^6/uL (4.70-6.10); RED CELL DISTRIBUTION WIDTH 13.9 % (12.0-15.0); WHITE BLOOD COUNT 5.5 x10^3/uL (4.8-10.8)
[2021-07-12 15:33] LABS: MUDS CUTOFF CONCENTRATIONS CUTOFF CONC BELOW:
[2021-07-12 15:36] LABS: BILIRUBIN,URINE NEGATIVE (NEGATIVE); GLUCOSE, URINE (UA) NEGATIVE (NEGATIVE); KETONES,URINE (UA) NEGATIVE (NEGATIVE); LEUKOCYTE ESTERASE, URINE NEGATIVE (NEGATIVE); NITRITE,URINE NEGATIVE (NEGATIVE); OCCULT BLOOD,URINE TRACE-INTA (NEGATIVE); PH,URINE 5.5 PH (5.0-7.5); PROTEIN,URINE TRACE mg/dL (NEGATIVE); UROBILINOGEN,URINE 0.2 (NORMAL) E.U./dL (NORMAL)
[2021-07-12 15:39] LABS: CLARITY,URINE CLEAR (CLEAR)
[2021-07-12 15:47] LABS: AMPHETAMINE SCREEN,URINE NEGATIVE (NEGATIVE); BARBITURATE SCREEN,UR NEGATIVE (NEGATIVE); BENZODIAZEPINES SCREEN, URINE NEGATIVE (NEGATIVE); COCAINE SCREEN URINE NEGATIVE (NEGATIVE); METHADONE SCREEN, URINE NEGATIVE (NEGATIVE); METHAMPHETAMINES SCREEN, URINE NEGATIVE (NEGATIVE); OPIATE SCREEN, URINE NEGATIVE (NEGATIVE); OXYCODONE SCREEN, URINE NEGATIVE (NEGATIVE); PROPOXYPHENE SCREEN, URINE NEGATIVE (NEGATIVE); THC CANNABINOID SCREEN, URINE NEGATIVE (NEGATIVE); TRICYCLIC ANTIDEPRESSANT,URINE NEGATIVE (NEGATIVE)
[2021-07-12 15:52] LABS: ACETAMINOPHEN < 10 ug/mL (10-30); ALBUMIN 3.1 g/dL (3.2-5.5); ALBUMIN/GLOBULIN RATIO 0.9 (1.0-2.2); ALKALINE PHOSPHATASE 131 IU/L (42-121); ALT ALANINE AMINOTRANSFERASE 17 IU/L (10-60); AST ASPARTATE AMINOTRANSFERASE 26 IU/L (10-42); BILIRUBIN,TOTAL 1.5 mg/dL (0.2-1.0); BUN - BLOOD UREA NITROGEN 25 mg/dL (6-20); CALCIUM 8.9 mg/dL (8.5-10.3); CARBON DIOXIDE - CO2 24 mmol/L (21-32); CHLORIDE 104 mmol/L (101-111); CREATININE 0.9 mg/dL (0.6-1.2); ETOH - ETHANOL < 5.0 mg/dL; GFR - MDRD 80 (>89); GLUCOSE 85 mg/dL (70-100); LIPASE 36 U/L (22-51); POTASSIUM 3.4 mmol/L (3.5-5.0); SALICYLATE < 6.0 mg/dL; SODIUM 141 mmol/L (135-145); TOTAL PROTEIN 6.4 g/dL (6.7-8.2)
[2021-07-12] MEDS ORDERED: SODIUM CHLORIDE 0.9% 1,000 ML IV STA (15:57)
--- NOTE | 2021-07-12 16:07 | CT Report ---
PROCEDURE: HEAD WO INDICATIONS: altered mental status TECHNIQUE: Noncontrast 4.5 mm thick angled axial sections acquired from the foramen magnum to the vertex. For r adiation dose reduction, the following was used: automated exposure control, adjustment of mA and/or kV according to patient size. COMPARISON: 02/28/2021 FINDINGS: Image quality: Partially degraded by motion artifact. CSF spaces: Basal cisterns are patent. No extra-axial fluid collections. Ventricles are normal in size and shape. Brain: No midline shift. No intracranial masses or hemorrhage. Zayas-white matter interface is norm al. Skull and face: Calvarium and visualized facial bones are intact, without suspicious lesions. Sinuses: Visualized sinuses and mastoids are clear. IMPRESSION: 1. Volume loss and small vessel ischemic disease. 2. No acute intracranial abnormality. Reviewed by: Rangel Bennett MD on 07/12/2021 4:06 PM PST Approved by: Rangel Bennett MD on 07/12/2021 4:06 PM PST Station ID: [id number]
--- NOTE | 2021-07-12 16:48 | ED Physician Documentation ---
History of Present Illness - Stated complaint Stated Complaint: UNRESPONSIVE - Chief complaint Chief Complaint: Critical Care - History obtained from History obtained from: Patient, EMS - History of Present Illness Timing: Today Pain level max: 0 Pain level now: 0 - Additonal information Additional information: 85-year-old male, DNR/DNI brought to the hospital by EMS today for altered mental status. Nothing makes it better or worse. Family states last time this happened it was dehydration. Has a history of severe dementia. Review of Systems Unable to obtain: Unresponsive PD PAST MEDICAL HISTORY - Past Medical History Cardiovascular: Atrial fibrillation Respiratory: None Neuro: None, Dementia Endocrine/Autoimmune: None GI: Chronic constipation : Benign prostate hypertrophy, Retention HEENT: Chronic hearing loss Psych: Depression Musculoskeletal: Osteoarthritis Derm: None - Past Surgical History Past Surgical History: Yes General: Cholecystectomy Ortho: Knee replacement - Present Medications Home Medications: Ambulatory Orders Medication Instructions Recorded Confirmed Metoprolol Tartrate [Lopressor] 50 mg PO DAILY 12/19/20 07/07/21 Tamsulosin [Flomax] 0.4 mg PO DAILY 12/19/20 07/07/21 - Allergies Allergies/Adverse Reactions: Allergies Allergy/AdvReac Type Severity Reaction Status Date / Time morphine Allergy Unknown Verified 07/07/21 21:14 - Social History Does the pt smoke?: No Smoking Status: Former smoker Does the pt drink ETOH?: No Does the pt have substance abuse?: No - Immunizations Immunizations are current?: Yes - POLST Patient has POLST: Yes PD ED PE NORMAL - Vitals Vital signs reviewed: Yes - General General: Other (Minimally responsive) - HEENT HEENT: Atraumatic, PERRL, Moist mucous membranes - Neck Neck: Supple, no meningeal sign - Cardiac Cardiac: RRR - Respiratory Respiratory: No respiratory distress, Clear bilaterally - Abdomen Abdomen: Other (Firm distended abdomen above the umbilicus. Ultrasound reveals a distended bladder) - Derm Derm: Warm and dry - Extremities Extremities: No edema - Neuro Neuro: Other (Minimally responsive) Eye Opening: To Pain Motor: Withdraws to Pain Verbal: Incomprehensible GCS Score: 8 Results - Vitals Vitals: Vital Signs - 24 hr 07/12/21 07/12/21 07/12/21 15:07 15:11 15:49 Temperature 36.5 C Heart Rate 130 H 120 H 120 H Respiratory 24 24 16 Rate Blood Pressure 131/82 H 131/82 H 136/90 H O2 Saturation 100 100 07/12/21 07/12/21 07/12/21 16:28 16:39 17:47 Temperature Heart Rate 113 H 110 H 114 H Respiratory 14 20 14 Rate Blood Pressure 117/82 H 129/86 H 118/73 O2 Saturation 98 100 98 07/12/21 18:03 Temperature Heart Rate 100 Respiratory 14 Rate Blood Pressure 125/79 O2 Saturation 99 Oxygen O2 Source Room air - EKG (time done) 1521 Rate: Rate (enter#) (125) Rhythm: Atrial fibrillation [place]: Normal QRS: Normal Ischemia: Other (rate related repol abnormality) - Labs Labs: Laboratory Tests 07/12/21 07/12/21 07/12/21 15:15 15:23 15:23 WBC 5.5 RBC 4.17 L Hgb 13.1 L Hct 40.1 L MCV 96.2 H MCH 31.4 H MCHC 32.7 RDW 13.9 Plt Count 231 MPV 9.4 Neut # (Auto) 3.6 Lymph # (Auto) 1.3 L [place] # (Auto) 0.5 Eos # (Auto) 0.1 Baso # (Auto) 0.1 Absolute Nucleated RBC 0.00 Nucleated RBC % 0.0 Sodium 141 Potassium 3.4 L Chloride 104 Carbon Dioxide 24 Anion Gap 13.0 BUN 25 H Creatinine 0.9 Estimated GFR (MDRD) 80 L Glucose 85 Calcium 8.9 Total Bilirubin 1.5 H AST 26 ALT 17 Alkaline Phosphatase 131 H Troponin I High Sens Total Protein 6.4 L Albumin 3.1 L Globulin 3.3 Albumin/Globulin Ratio 0.9 L Lipase 36 TSH Urine Color DARK YELLOW Urine Clarity CLEAR Urine pH 5.5 Ur Specific [place] 1.020 Urine Protein TRACE Urine Glucose (UA) NEGATIVE Urine Ketones NEGATIVE Urine Occult Blood TRACE-INTA Urine Nitrite NEGATIVE Urine Bilirubin NEGATIVE Urine Urobilinogen 0.2 (NORMAL) Ur Leukocyte Esterase NEGATIVE Ur Microscopic Review NOT INDICATED Urine Culture Comments NOT INDICATED Salicylates < 6.0 Urine Opiates Screen NEGATIVE Ur Oxycodone Screen NEGATIVE Urine Methadone Screen NEGATIVE Ur Propoxyphene Screen NEGATIVE Acetaminophen < 10 L Ur Barbiturates Screen NEGATIVE Ur Tricyclics Screen NEGATIVE Ur Phencyclidine Scrn NEGATIVE Ur Amphetamine Screen NEGATIVE U Methamphetamines Scrn NEGATIVE U Benzodiazepines Scrn NEGATIVE Urine Cocaine Screen NEGATIVE U Cannabinoids Screen NEGATIVE Ethyl Alcohol < 5.0 07/12/21 07/12/21 15:23 15:23 WBC RBC Hgb Hct MCV MCH MCHC RDW Plt Count MPV Neut # (Auto) Lymph # (Auto) [place] # (Auto) Eos # (Auto) Baso # (Auto) Absolute Nucleated RBC Nucleated RBC % Sodium Potassium Chloride Carbon Dioxide Anion Gap BUN Creatinine Estimated GFR (MDRD) Glucose Calcium Total Bilirubin AST ALT Alkaline Phosphatase Troponin I High Sens 15.7 Total Protein Albumin Globulin Albumin/Globulin Ratio Lipase TSH 1.30 Urine Color Urine Clarity Urine pH Ur Specific [place] Urine Protein Urine Glucose (UA) Urine Ketones Urine Occult Blood Urine Nitrite Urine Bilirubin Urine Urobilinogen Ur Leukocyte Esterase Ur Microscopic Review Urine Culture Comments Salicylates Urine Opiates Screen Ur Oxycodone Screen Urine Methadone Screen Ur Propoxyphene Screen Acetaminophen Ur Barbiturates Screen Ur Tricyclics Screen Ur Phencyclidine Scrn Ur Amphetamine Screen U Methamphetamines Scrn U Benzodiazepines Scrn Urine Cocaine Screen U Cannabinoids Screen Ethyl Alcohol - Rads (name of study) Head CT Radiology: Final report received, EMP read contemporaneously, See rad report (No acute abnormality) PD MEDICAL DECISION MAKING - ED course Complexity details: reviewed results, re-evaluated patient, considered differential, d/w family ED course: 85-year-old male with significant dementia presents with altered mental status, decreased responsiveness. He was given IV fluids and a Arias catheter was placed which drained about 2.5 L out of his bladder. The distended abdomen resolved. No other significant lab abnormalities. No acute findings on head CT. Patient gradually returned to his normal mental baseline. Unclear etiology of the symptoms. Possible nonconvulsive seizures? Discussed the case with his daughter who is his caregiver, she would like a hospice referral placed. This was done. The Arias catheter will be left in place. Recommend that she leave this in place. Discussed with Dr. Rodriguez, on-call for the patient's physician Dr. Iyer who will follow up with the patient as an outpatient. This document was made in part using voice recognition software. While efforts are made to proofread this document, sound alike and grammatical errors may o ccur. Departure - Departure Disposition: 01 Home, Self Care Clinical Impression: Acute urinary retention, Dehydration Dementia Qualifiers: Dementia type: unspecified type Dementia behavioral disturbance: without behavioral disturbance Qualified Code(s): F03.90 - Unspecified dementia without behavioral disturbance Altered mental status Qualifiers: Altered mental status type: unspecified Qualified Code(s): R41.82 - Altered mental status, unspecified Condition: Good Instructions: ED Dehydration, ED Dementia Caregiver Support, ED Catheter Care Arias Follow-Up: Sheldon Iyer MD [Provider Admit Priv/Credential] - Within 1 week Comments: A hospice referral was placed today. They should contact you tomorrow. The catheter was placed tonight for urinary retention. He does not have a urinary tract infection. I would leave the catheter in place for comfort and to ensure that his bladder is draining fully. I have called Dr. Iyer as well, I have sent him the chart note as well. Discharge Date/Time: 07/12/21 18:04
[2021-07-12 18:05] VITALS: BP 125/79
== END 2021-07-12 18:04 | disposition home or self-care (01) ==
LOC: EDUNIT# → ED 14:50
DX: E86.0 Dehydration (principal); R33.9 Retention of urine, unspecified; F03.90 Unspecified dementia, unspecified severity, without behavioral disturbance, psychotic disturbance, mood disturbance, and anxiety; Z66 Do not resuscitate; Z87.891 Personal history of nicotine dependence; I48.91 Unspecified atrial fibrillation
CPT/HCPCS: 36415; 51702; 70450; 80053; 80306; 80307; 81003; 83690; 84443; 84484; 85025; 93005; 96360; 99284; 99285; G0480; 80320; 80329; 81001; 87086

== ENCOUNTER 2021-07-12 18:04 | Outpatient (CLI) | payer MEDICARE | END 2021-07-12 23:59 | disposition home or self-care (01) | LOC: EMS 18:04 | PROVIDERS: ATTEND Emergency Medicine | DX: F03.90 Unspecified dementia, unspecified severity, without behavioral disturbance, psychotic disturbance, mood disturbance, and anxiety (principal); Z74.01 Bed confinement status | CPT/HCPCS: A0425; A0428 ==